=== PATIENT | male | born 1955 | race Caucasian/White ===

== ENCOUNTER 2020-02-03 12:09 | Inpatient (IN) | payer BC, MEDICARE ==
[~2020-02-03 12:09] MED LIST: IV FLUID CONTINUATION 1,000 ML IV ONE
[2020-02-03] MEDS ORDERED: HEPARIN SODIUM,PORCINE 5,000 UNIT/ML 1 ML VIAL IV PRN (12:55)
[2020-02-03] MEDS ORDERED: HEPARIN SODIUM,PORCINE 5,000 UNIT/ML 1 ML VIAL IV ONE (12:55)
[2020-02-03] MEDS ORDERED: ASPIRIN 81 MG PO STA (12:55)
[2020-02-03] MEDS ORDERED: SODIUM CHLORIDE 0.9% 1,000 ML IV STA (12:58)
[2020-02-03] MEDS ORDERED: HEPARIN SOD,PORK IN 0.45% NACL 25,000 UNIT in 0.45% NACL 1 250ML.BAG IV SCH (13:00)
--- NOTE | 2020-02-03 13:01 | ED ---
General Adult HPI - General Chief complaint: Chest Pain Stated complaint: Back and chest pain Time Seen by Provider: 02/03/20 12:35 Source: patient Mode of arrival: wheelchair Limitations: no limitations - History of Present Illness Initial comments: Dictation was produced using [employer] [place] dictation software. please excuse any grammatical, word or spelling errors. This patient was cared for during a federal and state declared state of emergency secondary to Covid 19 Chief Complaint: 64-year-old male with no significant past medical history presents today with chest and back pain. History of Present Illness: Patient is a 64-year-old male he denies any history of medical comorbidities. Patient states that over the last week has been having exertional dyspnea and pressure-like sensation to his chest radiating to his back. Patient states that his pain is associated with diaphoresis and nausea. Patient states that his pain now feels like it's in the epigastric area. He states he came to the emergency department today because his symptoms are getting worse. Patient denies any history of diabetes, hypertension or high cholesterol. Does not have any history of tobacco use. Reports that his father had myocardial infarction in his 60s. The ROS documented in this emergency department record has been reviewed and confirmed by me. Those systems with pertinent positive or negative responses have been documented in the HPI. All other systems are other negative and/or noncontributory. PHYSICAL EXAM: General Impression: Alert and oriented x3, mild distress secondary to pain HEENT: Normocephalic atraumatic, extra-ocular movements intact, pupils equal and reactive to light bilaterally, mucous membranes moist. Cardiovascular: Heart regular rate and rhythm, no murmurs, rubs or gallops Chest: Able to complete full sentences, no retractions, no tachypnea clear to auscultation bilaterally Abdomen: abdomen soft, non-tender, non-distended, no organomegaly Musculoskeletal: Pulses present and equal in all extremities, no peripheral edema Motor: no focal deficits noted Neurological: CN II-XII grossly intact, no focal motor or sensory deficits noted Skin: Intact with no visualized rashes Psych: Normal affect and mood ED course: 64-year-old male presents today with chief complaint of chest pain. His chest pain is concerning for acute coronary syndrome. EKG was obtained showing acute myocardial infarction. Patient has ST elevations in the anteroseptal leads and high lateral leads. There is reciprocal depressions in inferior leads. Vital signs upon arrival shows blood pressure 97/65, rest of vital signs within acceptable limits. Code STEMI was paged. Case was discussed with Dr. Rodarte. [id number] bedside ultrasound was performed. No pericardial effusion. There appears to be some septal wall motion abnormality. Dr. Rodarte at bedside value with patient prior to transfer patient to cardiac supervisor cytogenetic laboratory. Patient case was discussed with Dr. Bravo covering for Dr. Downing. Patient be admitted. He is given aspirin and heparin. EKG interpretation: Ventricular rate 89, sinus rhythm, DC,. Interval 1:30, QRS 92, QTc 462. No [place] prolongation, no QTC prolongation, ST elevations in V1 through V5, elevation in aVL and depressions in inferior leads - Related Data Home Medications Medication Instructions Recorded Confirmed No Known Home Medications 02/03/20 02/03/20 Allergies Allergy/AdvReac Type Severity Reaction Status Date / Time Penicillins Allergy Rash/Hives Verified 02/03/20 12:57 Review of Systems ROS Statement: Those systems with pertinent positive or pertinent negative responses have been documented in the HPI. ROS Other: All systems not noted in ROS Statement are negative. Past Medical History Past Medical History: No Reported History History of Any Multi-Drug Resistant Organisms: None Reported Past Surgical History: Orthopedic Surgery Additional Past Surgical History / Comment(s): colonoscopy, rt shoulder Past Anesthesia/Blood Transfusion Reactions: No Reported Reaction Past Psychological History: No Psychological Hx Reported Smoking Status: Never smoker Past Alcohol Use History: None Reported Past Drug Use History: None Reported - Past Family History Mother Family Medical History: Cancer General Exam Limitations: no limitations Course Vital Signs 02/03/20 02/03/20 12:28 13:09 Temperature 98.3 F Pulse Rate 87 82 Respiratory 20 18 Rate Blood Pressure 97/65 145/97 O2 Sat by Pulse 99 97 Oximetry Medical Decision Making - Lab Data Result diagrams: 02/03/20 12:51 Lab Results 02/03/20 Range/Units 12:51 WBC 11.5 H (3.8-10.6) k/uL RBC 5.11 (4.30-5.90) m/uL Hgb 16.4 (13.0-17.5) gm/dL Hct 47.3 (39.0-53.0) % MCV 92.7 (80.0-100.0) fL MCH 32.1 (25.0-35.0) pg MCHC 34.7 (31.0-37.0) g/dL RDW 12.6 (11.5-15.5) % Plt Count 212 (150-450) k/uL MPV 7.4 Neutrophils % 79 % Lymphocytes % 13 % Monocytes % 5 % Eosinophils % 1 % Basophils % 1 % Neutrophils # 9.1 H (1.3-7.7) k/uL Lymphocytes # 1.5 (1.0-4.8) k/uL Monocytes # 0.6 (0-1.0) k/uL Eosinophils # 0.2 (0-0.7) k/uL Basophils # 0.1 (0-0.2) k/uL Critical Care Time Critical Care Time: Yes Total Critical Care Time: 15 Disposition Clinical Impression: STEMI (ST elevation myocardial infarction) Disposition: ADMITTED IP TO [facility] Condition: Critical Decision Time: 13:13
[2020-02-03] MEDS ORDERED: NALOXONE 0.4 MG/ML 1 ML VIAL IV PRN (13:02)
[2020-02-03 13:08] LABS: Basophils # (A) 0.1 k/uL (0-0.2); Basophils % (A) 1 %; Eosinophils # (A) 0.2 k/uL (0-0.7); Eosinophils % (A) 1 %; HCT 47.3 % (39.0-53.0); HGB 16.4 gm/dL (13.0-17.5); Lymphocytes # (A) 1.5 k/uL (1.0-4.8); Lymphocytes % (A) 13 %; MCH 32.1 pg (25.0-35.0); MCHC 34.7 g/dL (31.0-37.0); MCV 92.7 fL (80.0-100.0); Mean Platelet Volume 7.4; Monocytes # (A) 0.6 k/uL (0-1.0); Monocytes % (A) 5 %; Neutrophils # (A) 9.1 k/uL (1.3-7.7); Neutrophils % (A) 79 %; Platelet Count 212 k/uL (150-450); RBC 5.11 m/uL (4.30-5.90); RDW 12.6 % (11.5-15.5); WBC 11.5 k/uL (3.8-10.6)
--- NOTE | 2020-02-03 13:13 | XR ---
EXAMINATION TYPE: XR chest 1V portable DATE OF EXAM: 02/03/2020 Comparison: None Clinical History: 64-year-old male Chest Pain Findings: The heart is normal size. Aorta within normal limits. Some interstitial opacities in the right lower lung. Otherwise, no consolidation or pleural effusion. Impression: Interstitial infiltrate in the right lower lung. Correlate for early pneumonia.
[2020-02-03] MEDS ORDERED: ATORVASTATIN 80 MG TAB PO STA (13:15)
[2020-02-03 13:16] LABS: Prothrombin Time 10.3 sec (9.0-12.0)
[2020-02-03 13:19] LABS: Albumin 4.5 g/dL (3.5-5.0); Calcium 9.3 mg/dL (8.4-10.2); Magnesium 1.9 mg/dL (1.6-2.3); Potassium 4.4 mmol/L (3.5-5.1); Total Bilirubin 0.6 mg/dL (0.2-1.3); Total Protein 7.5 g/dL (6.3-8.2)
--- NOTE | 2020-02-03 13:33 | P.CRDCN ---
History of Present Illness History of present illness: HISTORY OF PRESENTING ILLNESS This is a pleasant 64-year-old male past medical history significant for family history of CAD. Patient admits he has not followed with a doctor in quite some time and denies any history of diabetes mellitus, hypertension, hyperlipidemia. He does admit that his father of a heart attack in his 60s. He denies any tobacco abuse, alcohol or illicit drugs. He states over the last 1 week he has been having a pressure sensation which starts in his back and radiates to his right chest and mainly this has been associated with exertion. Chest pain however started this afternoon and did not resolve and therefore presented to the emergency department. Patient was found to have STEMI anterolateral and therefore supervisor dental laboratory was activated. He denies any recent fevers, chills, cough. He denies any hematochezia or melena. DIAGNOSTICS EKG reveals sinus rhythm, ST elevation V1 through V5, aVL with reciprocal depressions inferiorly. Chest xray interstitial infiltrate in the right lower lung correlate for early pneumonia. Laboratory reviewed, white blood cell count 11.5, hemoglobin 16.4, platelets 212, creatinine 1.0, sodium 139, glucose 156. Current cardiac medications include aspirin 324 mg and heparin 4000 units. REVIEW OF SYSTEMS At the time of my exam: CONSTITUTIONAL: Denies fever or chills. CARDIOVASCULAR: +chest pain, and back pain, no shortness of breath, orthopnea, PND or palpitations. RESPIRATORY: Denies cough. GASTROINTESTINAL: Denies abdominal pain, diarrhea, constipation, nausea or vomiting. MUSCULOSKELETAL: Denies myalgias. NEUROLOGIC: Denies numbness, tingling or weakness. ENDOCRINE: Denies fatigue, weight change, polydipsia or polyurina. GENITOURINARY: Denies burning, hematuria or urgency with micturation. HEMATOLOGIC: Denies history of anemia or bleeding. PHYSICAL EXAMINATION Blood pressure 145/97 heart rate 82 afebrile and maintaining oxygen saturation on room air. CONSTITUTIONAL: Mild distress. HEENT: Head is normocephalic. Pupils are equal, round. Sclerae anicteric. Mucous membranes of the mouth are moist. No JVD. No carotid bruit. CHEST EXAMINATION: Lungs are clear to auscultation. No chest wall tenderness is noted on palpation or with deep breathing. HEART EXAMINATION: Regular rate and rhythm. S1, S2 heard. No murmurs, gallops or rub. ABDOMEN: Soft, nontender. Positive bowel sounds. EXTREMITIES: 2+ peripheral pulses, no lower extremity edema and no calf tenderness. NEUROLOGIC EXAMINATION: Patient is awake, alert and oriented x3. ASSESSMENT 1. Anterolateral STEMI with stuttering symptoms over the past week 2. Family history of coronary artery disease 3. Abnormal chest x-ray with questionable right lower lung infiltrate 4. Hyperglycemia 5. Poor follow-up with routine medical screening PLAN Cardiac catheterization lab activated. Transfer for emergent heart catheterization and PCI. Check 2-D echo. Further recommendations to follow. Past Medical History Past Medical History: No Reported History History of Any Multi-Drug Resistant Organisms: None Reported Past Surgical History: Orthopedic Surgery Additional Past Surgical History / Comment(s): colonoscopy, rt shoulder Past Anesthesia/Blood Transfusion Reactions: No Reported Reaction Past Psychological History: No Psychological Hx Reported Smoking Status: Never smoker Past Alcohol Use History: None Reported Past Drug Use History: None Reported - Past Family History Mother Family Medical History: Cancer Medications and Allergies Home Medications Medication Instructions Recorded Confirmed Type No Known Home Medications 02/03/20 02/03/20 History Allergies Allergy/AdvReac Type Severity Reaction Status Date / Time Penicillins Allergy Rash/Hives Verified 02/03/20 12:57 Physical Exam Vitals: Vital Signs Temp Pulse Resp BP Pulse Ox 02/03/20 13:09 82 18 145/97 97 02/03/20 12:28 98.3 F 87 20 97/65 99 Intake and Output 02/02/20 02/03/20 02/03/20 22:59 06:59 14:59 Other: Weight 74.843 kg Results 02/03/20 12:51 02/03/20 12:51 Cardiac Enzymes 02/03/20 Range/Units 12:51 AST 49 (17-59) U/L Coagulation 02/03/20 Range/Units 12:51 PT 10.3 (9.0-12.0) sec APTT 24.0 (22.0-30.0) sec CBC 02/03/20 Range/Units 12:51 WBC 11.5 H (3.8-10.6) k/uL RBC 5.11 (4.30-5.90) m/uL Hgb 16.4 (13.0-17.5) gm/dL Hct 47.3 (39.0-53.0) % Plt Count 212 (150-450) k/uL Comprehensive Metabolic Panel 02/03/20 Range/Units 12:51 Sodium 139 (137-145) mmol/L Potassium 4.4 (3.5-5.1) mmol/L Chloride 101 (98-107) mmol/L Carbon Dioxide 30 (22-30) mmol/L BUN 23 H (9-20) mg/dL Creatinine 1.02 (0.66-1.25) mg/dL Glucose 156 H (74-99) mg/dL Calcium 9.3 (8.4-10.2) mg/dL AST 49 (17-59) U/L ALT 41 (4-49) U/L Alkaline Phosphatase 92 (38-126) U/L Total Protein 7.5 (6.3-8.2) g/dL Albumin 4.5 (3.5-5.0) g/dL Current Medications Generic Name Dose Route Start Last Admin Trade Name Freq PRN Reason Stop Dose Admin Heparin Sodium (Porcine) 0 unit 02/03/20 12:55 Heparin Sodium,Porcine 5,000 Unit/Ml 1 Ml Vial IV PER PROTOCOL PRN Low PTT Protocol Heparin Sodium/Sodium Chloride 250 mls @ 8.981 mls/hr 02/03/20 13:00 25,000 unit/ Sodium Chloride IV .Q24H ELIZABETH Protocol 12 UNITS/KG/HR Sodium Chloride 1,000 mls @ 999 mls/hr 02/03/20 12:58 02/03/20 13:05 Saline 0.9% IV 02/03/20 13:58 999 mls/hr .Q1H1M STA Administration Naloxone HCl 0.2 mg 02/03/20 13:02 Naloxone 0.4 Mg/Ml 1 Ml Vial IV Q2M PRN Opioid Reversal Intake and Output 02/02/20 02/03/20 02/03/20 22:59 06:59 14:59 Other: Weight 74.843 kg Patient Weight 02/04/20 06:59 Weight 74.843 kg 02/03/20 12:51 02/03/20 12:51
[2020-02-03] MEDS ORDERED: MIDAZOLAM 2 MG/2 ML VIAL IVP ONE (13:35)
[2020-02-03] MEDS: fentaNYL (PF) 50 MCG/ML 2 ML AMP IVP ONE ×2 (13:35→14:23)
[2020-02-03] MEDS ORDERED: LIDOCAINE 1% INJ 10MG/ML (20 ML MDV) SQ ONE (13:37)
[2020-02-03] MEDS ORDERED: VERAPAMIL SYRINGE (5 MG/10 ML) INTRAARTER ONE (13:39)
[2020-02-03] MEDS: HEPARIN SODIUM 1,000 UN/ML (10ML VL) IV ONE ×2 (13:44→13:59)
[2020-02-03] MEDS ORDERED: PRASUGREL 10 MG TAB PO ONE (13:50)
[2020-02-03] MEDS: NITROGLYCERIN 1000MCG/10ML SYRINGE INTRACORON ONE ×2 (13:52→14:08)
[2020-02-03] MEDS ORDERED: IOPAMIDOL-370 125ML BTL INJ ONE (14:07)
[2020-02-03] MEDS ORDERED: IOPAMIDOL-370 100ML BTL INJ ONE ×2 (14:12→14:24)
[2020-02-03] MEDS ORDERED: NITROGLYCERIN SL TABS 0.4 MG TAB SUBLINGUAL PRN (15:02)
[2020-02-03] MEDS ORDERED: MAG HYDROX/AL HYDROX/SIMETH 30 ML CUP PO PRN (15:02)
[2020-02-03] MEDS ORDERED: ATROPINE SULFATE 0.1 MG/ML 10ML SYRINGE IV PRN (15:02)
[2020-02-03] MEDS ORDERED: RX INFO: IV CONTRAST WAS GIVEN 1 EACH MISC MISCELLANE PRN (15:02)
[2020-02-03] MEDS ORDERED: ZOLPIDEM 5 MG TAB PO PRN (15:02)
[2020-02-03] MEDS: SODIUM CHLORIDE 0.9% 1,000 ML IV SCH (15:35)
[2020-02-03] MEDS: HYDROmorphone 0.5 MG/0.5 ML SYRINGE IVP PRN ×2 (16:47→21:40)
[2020-02-03] MEDS: METOPROLOL TARTRATE 25 MG TAB PO SCH (20:31)
[2020-02-04 04:02] LABS: HGB 15.4 gm/dL (13.0-17.5); MCH 32.5 pg (25.0-35.0); MCHC 34.3 g/dL (31.0-37.0); MCV 94.6 fL (80.0-100.0); Mean Platelet Volume 7.1; Platelet Count 199 k/uL (150-450); RBC 4.76 m/uL (4.30-5.90); WBC 12.3 k/uL (3.8-10.6)
[2020-02-04 04:10] LABS: ALT 106 U/L (4-49); AST 468 U/L (17-59); African American GFR (CKD) >90 (>60 ml/min/1.73 sqM); Albumin 3.9 g/dL (3.5-5.0); Alkaline Phosphatase 59 U/L (38-126); Anion Gap 6 mmol/L; Blood Urea Nitrogen 23 mg/dL (9-20); Calcium 8.4 mg/dL (8.4-10.2); Carbon Dioxide 24 mmol/L (22-30); Chloride 105 mmol/L (98-107); Non-African American GFR(CKD) >90 (>60 ml/min/1.73 sqM); Potassium 4.9 mmol/L (3.5-5.1); Sodium 135 mmol/L (137-145); Total Protein 6.8 g/dL (6.3-8.2)
[2020-02-04 04:18] LABS: Glucose 165 mg/dL (74-99)
[2020-02-04] MEDS: SODIUM CHLORIDE 0.9% 1,000 ML IV SCH (06:47)
[2020-02-04] MEDS: METOPROLOL TARTRATE 25 MG TAB PO SCH ×2 (09:09→20:24)
[2020-02-04] MEDS: ASPIRIN 81 MG PO SCH (09:09)
[2020-02-04] MEDS: PRASUGREL 10 MG TAB PO SCH (09:09)
--- NOTE | 2020-02-04 10:03 | PN ---
PROGRESS NOTE Josh is a 64-year-old gentleman who is admitted to the hospital with acute anterior wall myocardial infarction. Underwent emergent cardiac catheterization, angioplasty with stent placement by my associate, Dr. Rodarte. This morning patient is doing well and is free of symptoms. He is on aspirin, Lopressor 25 b.i.d. and Effient. The patient was on atorvastatin, but this has been stopped. For unclear reasons his liver enzymes have suddenly increased from admission which could be related to the myocardial infarction. We will watch it for another day and once the liver enzymes start normalizing, will start him on Lipitor. PHYSICAL EXAM: Afebrile, heart rate is 89 beats per minute, blood pressure is 122/92, respiratory rate 18. Chest exam reveals good air entry bilaterally. Heart exam reveals first and second heart sounds. No gallop. Abdomen is soft. Exam of extremities did not reveal any edema. Peripheral pulses are felt. LABS: Show that the hemoglobin is 15.4, potassium is 4.9, creatinine is 0.8. BNP is 980. Troponin is 1.1. AST, ALT are elevated at 468 and 106. ASSESSMENT: Acute anterior wall myocardial infarction. PLAN: Patient had cardiac catheterization and emergent angioplasty. He will continue current medications. I will obtain liver enzymes tomorrow and if they start coming down, we will start him on Lipitor. We will also obtain a 2D echo. NEETA / JINAN: [id number] /
[2020-02-04 12:31] VITALS: BMI 24.4
--- NOTE | 2020-02-04 15:24 | P.HPIM ---
History of Present Illness H&P Date: 02/04/20 Chief Complaint: Chest pain This is a pleasant 64-year-old male without any significant past medical history, patient has been having intermittent chest pain and back pain for the last 10 days however one day prior to coming to the hospital severity of pain increases patient has significant cardiovascular disease in the family, patient brother underwent a stent placement couple of weeks ago, on arrival patient noted to have a ST segment elevation more than 2 mm in anterior chest leads suggestive of acute ST segment elevated MA, patient was eval by cardiovascular services underwent an emergent cardiac cath and angiogram and stent placement in mid LAD portion, her labs were significant for troponin level of 1.16, initially subsequent were 107, patient's initial liver enzymes were normal however today almost 10 times elevation is seen in AST and 3 times and ALT Review of Systems All systems: negative Past Medical History Past Medical History: No Reported History History of Any Multi-Drug Resistant Organisms: None Reported Past Surgical History: Orthopedic Surgery Additional Past Surgical History / Comment(s): colonoscopy, rt shoulder Past Anesthesia/Blood Transfusion Reactions: No Reported Reaction Smoking Status: Never smoker - Past Family History Mother Family Medical History: Cancer Medications and Allergies Home Medications Medication Instructions Recorded Confirmed Type No Known Home Medications 02/03/20 02/03/20 History Allergies Allergy/AdvReac Type Severity Reaction Status Date / Time Penicillins Allergy Rash/Hives Verified 02/03/20 12:57 Physical Exam Vitals: Vital Signs Temp Pulse Resp BP Pulse Ox 02/04/20 12:00 98.9 F 76 18 107/77 96 02/04/20 11:00 72 15 95 02/04/20 10:00 76 17 117/79 96 02/04/20 08:00 98.2 F 89 19 122/90 94 L 02/04/20 07:00 90 18 122/81 93 L 02/04/20 06:00 85 17 122/80 95 02/04/20 05:00 77 19 128/88 94 L 02/04/20 04:00 99.1 F 22 109/82 93 L 02/04/20 03:59 16 02/04/20 03:00 79 16 112/81 95 02/04/20 02:00 67 18 110/82 95 02/04/20 01:00 67 19 105/81 94 L 02/04/20 00:00 98.6 F 66 17 114/85 94 L 02/03/20 23:00 84 22 120/85 95 02/03/20 22:00 92 20 124/85 94 L 02/03/20 21:00 80 20 131/85 95 02/03/20 20:00 98.9 F 84 18 126/89 97 02/03/20 19:30 83 18 126/91 96 02/03/20 19:00 82 15 134/90 97 02/03/20 18:30 78 17 128/88 97 02/03/20 18:00 83 14 130/88 97 02/03/20 17:30 85 15 126/79 97 02/03/20 17:00 82 18 128/80 96 02/03/20 16:30 79 18 135/87 98 02/03/20 16:00 80 14 142/92 97 02/03/20 15:30 85 15 135/89 97 Intake and Output 02/04/20 02/04/20 02/04/20 06:59 14:59 22:59 Intake Total 900 625 Output Total 200 Balance 700 625 Intake: IV 600 75 Sodium Chloride 0.9% 1, 600 75 000 ml @ 75 mls/hr IV . [id number] COUNT INCLUDES THE [facility] Rx#:[id number] Oral 300 550 Output: Urine 200 Other: Voiding Method Urinal Urinal # Voids 1 Weight 77.2 kg 77.2 kg - Constitutional General appearance: average body habitus, cooperative, disheveled - EENT Eyes: PERRLA Ears: bilateral: normal - Neck Carotids: right: upstroke delayed Thyroid: bilateral: normal size - Respiratory Respiratory: bilateral: CTA - Cardiovascular Rhythm: regular Heart sounds: normal: S1, S2 - Gastrointestinal General gastrointestinal: decreased bowel sounds - Integumentary Integumentary: normal turgor - Neurologic Neurologic: CNII-XII intact - Musculoskeletal Musculoskeletal: gait normal, generalized weakness, strength equal bilaterally - Psychiatric Psychiatric: A&O x's 3, appropriate affect, intact judgment & insight Results CBC & Chem 7: 02/04/20 03:51 02/04/20 03:51 Labs: Abnormal Lab Results - Last 24 Hours (Table) 02/04/20 02/04/20 02/04/20 Range/Units 03:51 03:51 03:51 WBC 12.3 H (3.8-10.6) k/uL Sodium 135 L (137-145) mmol/L BUN 23 H (9-20) mg/dL Glucose 165 H (74-99) mg/dL AST 468 H (17-59) U/L ALT 106 H (4-49) U/L Troponin I 107.000 H* (0.000-0.034) ng/mL Chest x-ray: report reviewed (Interstitial infiltrate in right lower lobe possible early pneumonia) Thrombosis Risk Factor Assmnt - Choose All That Apply Any of the Below Risk Factors Present?: Yes Each Factor Represents 1 point: Acute MA Each Risk Factor Represents 2 Points: Age 61-74 years Other congenital or acquired thrombophilia - If yes, enter type in comment: No Thrombosis Risk Factor Assessment Total Risk Factor Score: 3 Thrombosis Risk Factor Assessment Level: Moderate Risk Assessment and Plan Assessment: Acute ST segment elevated MA in anterior leads suggestive of acute anterior wall MA Coronary artery disease with obstruction of LAD status post emergent cardiac cath and stent placement Right lower lobe pneumonia Leukocytosis Elevated liver enzymes post MA Plan: Patient has been monitored in ICU, trend liver enzymes, echocardiogram pending, patient has been started on antilipid agents, will put patient on Rocephin as well, observe clinical course closely Time with Patient: Greater than 30
[2020-02-04] MEDS ORDERED: HYDROcodone/APAP 5-325MG 1 EACH TAB PO PRN (15:46)
[2020-02-04] MEDS: DOXYCYCLINE 100 MG CAP PO SCH (16:38)
--- NOTE | 2020-02-04 19:59 | P.PRCINT ---
Percutaneous Coronary Int. - Percutaneous Coronary Intervention Percutaneous Coronary Intervention: Date of PCI: 02/03/2020 Procedures performed: Left and right coronary angiography, PCI of mid LAD with 3.0 x 15 mm Xience LAMIN. Procedure performed by: Dr Med Rodarte DO Indications: STEMI HPI: Patient is a pleasant 64-year-old male who presented with back and chest pain and was found to have anterolateral STEMI. Apparently there was delay in patient obtaining EKG in ER, unclear if this was related to COVID however EKG showed anterolateral STEMI and slab off mill tender was activated. Conscious sedation: Conscious sedation was performed under the direct supervion of myself using Versed and Fentanyl. Description of procedure: The risks, benefits and alternatives of heart catheterization and PCI were explained in detail to the patient before the procedure and informed consent was obtained. The patient was brought to the Transportation Services Representative and was prepped and draped in the usual fashion. 1% lidocaine was used to anesthetize the right radial area. A 6 [place]ogol[place] sheath was inserted into the right radial artery using modified Seldinger technique. Left coronary angiography was performed with a CLS 3.5 guide. Right coronary angiography was performed with a 5 [place]ese after 5 diagnostic catheter. A decision was made to intervene on the LAD. Heparin was given for an ACT greater than 250. With the CLS 3.5 guide, a 0.014 BMW wire was placed in the distal vessel. Next predilation was performed using a 2.5 x 12 mm balloon. There was extensive thrombus noted. A 3.0 x 15 mm Xience LAMIN stent was then placed. The stent was post dilated with a 3.5 x 8mm NC balloon. Angiograms were obtained in multiple views. Pre intervention there was 99 % stenosis and VIRA 1 flow and post intervention there was <10% residual stenosis and VIRA 3 flow and no evidence of any dissection. The wire was then removed and final angiograms were obtained. A TR band was placed and the sheath was removed. The patient tolerated the procedure well. The patient was transferred to the post catheterization holding area in stable condition. Coronary angiography: Left Main: Large caliber, no signficant stenosis Circumflex: large caliber, codominant, gives off 3 moderate to large caliber OM branches with only mild luminal irregularities. LAD: Large caliber. There is diffuse proximal 30-40% stenosis followed by a mid LAD 99% stenosis with hazy thrombus and VIRA 1 flow. Otherwise mild luminal irregularities. RCA: Small to moderate caliber however only gives off a PDA and is codominant. Conclusions: 1. Successful PCI of mid LAD with 3.0 x 15 mm Xience LAMIN 2. Mild disease elsewhere including mild 30-40% proximal LAD disease and otherwise mild luminal irregularities. Plan: 1. Aggressive risk factor modifications per most recent ACC/AHA guidelines. 2. Continue dual antiplatelets for 12 months.
[2020-02-05 04:23] LABS: Basophils % (A) 0 %; Eosinophils # (A) 0.1 k/uL (0-0.7); Eosinophils % (A) 1 %; HCT 41.7 % (39.0-53.0); HGB 14.3 gm/dL (13.0-17.5); Lymphocytes # (A) 1.8 k/uL (1.0-4.8); Lymphocytes % (A) 18 %; MCH 31.9 pg (25.0-35.0); MCHC 34.3 g/dL (31.0-37.0); MCV 92.9 fL (80.0-100.0); Mean Platelet Volume 7.5; Monocytes # (A) 0.7 k/uL (0-1.0); Monocytes % (A) 7 %; Neutrophils # (A) 7.4 k/uL (1.3-7.7); Neutrophils % (A) 73 %; Platelet Count 161 k/uL (150-450); RBC 4.48 m/uL (4.30-5.90); RDW 12.8 % (11.5-15.5); WBC 10.2 k/uL (3.8-10.6)
[2020-02-05 04:31] LABS: ALT 84 U/L (4-49); AST 215 U/L (17-59); African American GFR (CKD) >90 (>60 ml/min/1.73 sqM); Albumin 3.9 g/dL (3.5-5.0); Alkaline Phosphatase 69 U/L (38-126); Anion Gap 4 mmol/L; Blood Urea Nitrogen 22 mg/dL (9-20); Calcium 8.9 mg/dL (8.4-10.2); Carbon Dioxide 31 mmol/L (22-30); Chloride 100 mmol/L (98-107); Glucose 105 mg/dL (74-99); Non-African American GFR(CKD) 80 (>60 ml/min/1.73 sqM); Potassium 4.3 mmol/L (3.5-5.1); Sodium 135 mmol/L (137-145); Total Protein 6.6 g/dL (6.3-8.2)
[2020-02-05] MEDS ORDERED: HEPARIN SODIUM,PORCINE 5,000 UNIT/ML 1 ML VIAL IV ONE (04:46)
[2020-02-05 05:01] LABS: Partial Thromboplastin Time 24.7 sec (22.0-30.0); Prothrombin Time 10.2 sec (9.0-12.0)
[2020-02-05] MEDS: HEPARIN SOD,PORK IN 0.45% NACL 25,000 UNIT in 0.45% NACL 1 250ML.BAG IV SCH ×2 (05:22→22:32)
[2020-02-05] MEDS ORDERED: AMIODARONE 360 MG in DEXTROSE 5% IN WATER 200 ML IV ONE ×2 (07:44)
[2020-02-05] MEDS ORDERED: DEXTROSE 5% IN WATER 100 ML with AMIODARONE 150 MG IV ONE (07:44)
[2020-02-05] MEDS: ASPIRIN 81 MG PO SCH (08:29)
[2020-02-05] MEDS: PRASUGREL 10 MG TAB PO SCH (08:29)
[2020-02-05] MEDS: DOXYCYCLINE 100 MG CAP PO SCH ×2 (08:29→20:13)
[2020-02-05] MEDS: METOPROLOL TARTRATE 25 MG TAB PO SCH ×2 (08:30→20:13)
--- NOTE | 2020-02-05 13:01 | ECHOF ---
Referral Reason:S/P AWMI MEASUREMENTS -------- HEIGHT: 177.8 cm WEIGHT: 75.7 kg BP: 106/70 IVSd: 1.6 cm (0.6 - 1.1) LVIDd: 3.6 cm (3.9 - 5.3) LVPWd: 1.5 cm (0.6 - 1.1) IVSs: 2.0 cm LVIDs: 2.5 cm LVPWs: 1.7 cm RVIDd: 2.9 cm (< 3.3) LAESV Index (A-L): 24.91 ml/m Ao Diam: 3.0 cm (2.0 - 3.7) AV Cusp: 1.9 cm (1.5 - 2.6) EPSS: 0.3 cm MV E Celestine: 0.82 m/s MV DecT: 125 ms MV A Celestine: 0.73 m/s MV E/A Ratio: 1.13 RAP: 5.00 mmHg RVSP: 45.37 mmHg MV EF SLOPE: 117.83 mm/s (70 - 150) MV EXCURSION: 20.18 mm (> 18.000) FINDINGS -------- Sinus rhythm. This was a technically adequate study. The left ventricular size is normal. There is moderate concentric left ventricular hypertrophy. O verall left ventricular systolic function is mildly impaired with, an EF between 45 - 50 %. Mitral Doppler inflow pattern suggests diastolic filling abnormality {E/E'}. Apical anterior LV wall motio n is hypokinetic. Apical inferior LV wall motion is hypokinetic. Apical septum LV wall motion i s hypokinetic. [place] Hypokinesis. The right ventricle is normal in size. Normal LA size by volume 22+/-6 ml/m2. The right atrial size is normal. Interatrial and interventricular septum intact. The aortic valve is trileaflet and appears structurally normal. There is no evidence of aortic regu rgitation. There is no evidence of aortic stenosis. Mild mitral regurgitation is present. Moderate tricuspid regurgitation present. There is moderate pulmonary hypertension. The right meme tricular systolic pressure, as measured by Doppler, is 45.37mmHg. There is no pulmonic regurgitation present. The aortic root size is normal. IVC Not well visulized. There is no pericardial effusion. CONCLUSIONS -------- 1. The left ventricular size is normal. 2. There is moderate concentric left ventricular hypertrophy. 3. Overall left ventricular systolic function is mildly impaired with, an EF between 45 - 50 %. 4. Mitral Doppler inflow pattern suggest diastolic filling abnormality {E/E'}. 5. Apical anterior LV wall motion is hypokinetic. 6. Apical inferior LV wall motion is hypokinetic. 7. Apical septum LV wall motion is hypokinetic. 8. [place] Hypokinesis. 9. Mild mitral regurgitation is present. 10. Moderate tricuspid regurgitation present. 11. There is moderate pulmonary hypertension. 12. The right ventricular systolic pressure, as measured by Doppler, is 45.37mmHg. MERCURY RECOVERER: Mary Ferrari RDCS
[2020-02-05] MEDS: AMIODARONE 300 MG in DEXTROSE 5% IN WATER 250 ML IV SCH ×4 (13:40→22:33)
--- NOTE | 2020-02-05 14:13 | P.PN ---
Subjective Progress Note Date: 02/05/20 Principal diagnosis: Acute coronary syndrome This is a 64-year-old gentleman who presented to the hospital with a chest discomfort and was diagnosed as anterior STEMI. He underwent a heart catheterization and stenting of the LAD. The patient was seen this morning. He is is symptomatic. Hemodynamically he is stable. The echo showed impaired LV function with EF around 45% with wall motion abnormalities. He is on dual antiplatelet therapy but he is not on a statin. I'm going to start the patient on high intensity statin. Also he is on metoprolol. No arrhythmia noted. Objective - Vital Signs Vital signs: Vital Signs Temp 97.9 F 02/05/20 12:00 Pulse 77 02/05/20 12:00 Resp 18 02/05/20 12:00 BP 98/80 02/05/20 12:00 Pulse Ox 96 02/05/20 12:00 Intake & Output 02/04/20 02/05/20 02/05/20 18:59 06:59 18:59 Intake Total 925 275 848.428 Output Total 1050 Balance 925 275 -201.572 Weight 77.2 kg 76.1 kg Intake: IV 75 75 Sodium Chloride 0.9% 1, 75 75 000 ml @ 75 mls/hr IV . [id number] [facility] Rx#:[id number] Intake, IV Titration 368.428 Amount Amiodarone 360 mg In 132 Dextrose 5% in Water 200 ml @ 1 MG/MIN 33.333 mls/ hr IV .Q6H [facility] Rx#: [id number] Dextrose 5% in Water 100 150 ml @ 618 mls/hr IV .Q10M [facility] with Amiodarone 150 mg Rx#:[id number] Heparin Sod,Pork in 0.45% 76.428 NaCl 25,000 unit In 0.45 % NaCl 1 250ml.bag @ 12 UNITS/KG/HR 9.264 mls/hr IV .Q24H [facility] Rx#: [id number] IV Fluid Continuation 1, 10 000 ml @ 0 mls/hr IV .STK -MED ONE Rx#:[id number] Oral 850 200 480 Output: Urine 1050 Other: Voiding Method Urinal Urinal # Voids 2 1 1 - Constitutional General appearance: Present: no acute distress - Respiratory Respiratory: bilateral: CTA - Cardiovascular Rhythm: regular - Labs CBC & Chem 7: 02/05/20 03:06 02/05/20 03:06 Labs: Abnormal Lab Results - Last 24 Hours (Table) 02/05/20 02/05/20 Range/Units 03:06 11:25 APTT 33.9 H (22.0-30.0) sec Sodium 135 L (137-145) mmol/L Carbon Dioxide 31 H (22-30) mmol/L BUN 22 H (9-20) mg/dL Glucose 105 H (74-99) mg/dL AST 215 H (17-59) U/L ALT 84 H (4-49) U/L Assessment and Plan Assessment: Assessment #[address] patient in my #2 hypertension #3 dyslipidemia Plan #1 continue the current medical regimen #2 monitor the patient in the ICU for additional 24 hours #3 add high intensity statin
--- NOTE | 2020-02-05 18:06 | P.PN ---
Subjective Progress Note Date: 02/05/20 Principal diagnosis: Atrial fibrillation with RVR Acute ST segment elevated [place] in anterior leads suggestive of acute anterior wall KS Coronary artery disease with obstruction of LAD status post emergent cardiac cath and stent placement Right lower lobe pneumonia Leukocytosis Elevated liver enzymes post [place] 02/05/2020, patient seen eval examined during the rounds labs reviewed medications reviewed, respiratory status remains stable patient had a episode of A. fib with RVR earlier this morning controlled with medication, now currently patient is on sinus rhythm, denies any chest pain breathing comfortably denies any cough or sputum production, LFT continued to be declining now This is a pleasant 64-year-old male without any significant past medical history, patient has been having intermittent chest pain and back pain for the last 10 days however one day prior to coming to the hospital severity of pain increases patient has significant cardiovascular disease in the family, patient brother underwent a stent placement couple of weeks ago, on arrival patient note d to have a ST segment elevation more than 2 mm in anterior chest leads suggestive of acute ST segment elevated [place], patient was eval by cardiovascular services underwent an emergent cardiac cath and angiogram and stent placement in mid LAD portion, her labs were significant for troponin level of 1.16, initially subsequent were 107, patient's initial liver enzymes were normal however today almost 10 times elevation is seen in AST and 3 times and ALT Objective - Vital Signs Vital signs: Vital Signs Temp 98.6 F 02/05/20 16:00 Pulse 87 02/05/20 16:00 Resp 16 02/05/20 16:00 BP 114/65 02/05/20 16:00 Pulse Ox 96 02/05/20 16:00 Intake & Output 02/04/20 02/05/20 02/05/20 18:59 06:59 18:59 Intake Total 428 398 1692.428 Output Total 1650 Balance 925 275 -565.572 Weight 77.2 kg 76.1 kg Intake: IV 75 75 Sodium Chloride 0.9% 1, 75 75 000 ml @ 75 mls/hr IV . [id number] [facility] Rx#:[id number] Intake, IV Titration 484.428 Amount Amiodarone 300 mg In 50 Dextrose 5% in Water 250 ml @ 0.5 MG/MIN 25 mls/hr IV .Q10H [facility] Rx#: [id number] Amiodarone 360 mg In 198 Dextrose 5% in Water 200 ml @ 1 MG/MIN 33.333 mls/ hr IV .Q6H [facility] Rx#: [id number] Dextrose 5% in Water 100 150 ml @ 618 mls/hr IV .Q10M [facility] with Amiodarone 150 mg Rx#:[id number] Heparin Sod,Pork in 0.45% 76.428 NaCl 25,000 unit In 0.45 % NaCl 1 250ml.bag @ 12 UNITS/KG/HR 9.264 mls/hr IV .Q24H [facility] Rx#: [id number] IV Fluid Continuation 1, 10 000 ml @ 0 mls/hr IV .STK -MED ONE Rx#:[id number] Oral 850 200 600 Output: Urine 1650 Other: Voiding Method Urinal Urinal # Voids 2 1 1 - Exam - Constitutional General appearance: average body habitus, cooperative, disheveled - EENT Eyes: PERRLA Ears: bilateral: normal - Neck Carotids: right: upstroke delayed Thyroid: bilateral: normal size - Respiratory Respiratory: bilateral: CTA - Cardiovascular Rhythm: regular Heart sounds: normal: S1, S2 - Gastrointestinal General gastrointestinal: decreased bowel sounds - Integumentary Integumentary: normal turgor - Neurologic Neurologic: CNII-XII intact - Musculoskeletal Musculoskeletal: gait normal, generalized weakness, strength equal bilaterally - Psychiatric Psychiatric: A&O x's 3, appropriate affect, intact judgment & insight - Labs CBC & Chem 7: 02/05/20 03:06 02/05/20 03:06 Labs: Abnormal Lab Results - Last 24 Hours (Table) 02/05/20 02/05/20 Range/Units 03:06 11:25 APTT 33.9 H (22.0-30.0) sec Sodium 135 L (137-145) mmol/L Carbon Dioxide 31 H (22-30) mmol/L BUN 22 H (9-20) mg/dL Glucose 105 H (74-99) mg/dL AST 215 H (17-59) U/L ALT 84 H (4-49) U/L Assessment and Plan Assessment: Post KS atrial fibrillation with RVR resolved now in sinus rhythm Acute ST segment elevated KS in anterior leads suggestive of acute anterior wall KS Coronary artery disease with obstruction of LAD status post emergent cardiac cath and stent placement Right lower lobe pneumonia Leukocytosis Elevated liver enzymes post KS Plan: Patient has been monitored in ICU, trend liver enzymes, echocardiogram reviewed, patient has been started on antilipid agents, will keep patient on doxycycline as well, observe clinical course closely, patient has been on amiodarone for A. fib RVR along with antibiotics Time with Patient: Greater than 30
[2020-02-05] MEDS ORDERED: ATORVASTATIN 80 MG TAB PO SCH (21:00)
[2020-02-06 03:31] LABS: Basophils % (A) 0 %; Eosinophils # (A) 0.1 k/uL (0-0.7); Eosinophils % (A) 1 %; HGB 14.1 gm/dL (13.0-17.5); Lymphocytes # (A) 1.5 k/uL (1.0-4.8); Lymphocytes % (A) 13 %; MCH 32.4 pg (25.0-35.0); MCHC 34.3 g/dL (31.0-37.0); MCV 94.6 fL (80.0-100.0); Monocytes # (A) 0.9 k/uL (0-1.0); Monocytes % (A) 8 %; Neutrophils # (A) 8.2 k/uL (1.3-7.7); Neutrophils % (A) 75 %; Platelet Count 134 k/uL (150-450); RBC 4.34 m/uL (4.30-5.90); RDW 12.8 % (11.5-15.5)
[2020-02-06 03:56] VITALS: RESP 18
[2020-02-06] MEDS: METOPROLOL TARTRATE 25 MG TAB PO SCH (09:00)
[2020-02-06] MEDS: DOXYCYCLINE 100 MG CAP PO SCH (09:00)
[2020-02-06] MEDS: ASPIRIN 81 MG PO SCH (09:00)
[2020-02-06] MEDS: PRASUGREL 10 MG TAB PO SCH (09:00)
--- NOTE | 2020-02-06 09:26 | P.PN ---
Subjective Progress Note Date: 02/06/20 Principal diagnosis: Acute coronary syndrome This is a 64-year-old gentleman who presented to the hospital with a chest discomfort and was diagnosed as anterior STEMI. He underwent a heart catheterization and stenting of the LAD. The patient was seen this morning. He remains asymptomatic from a cardiovascular standpoint of view. The echo revealed mildly impaired LV functio n was EF around 45%. He is on dual antiplatelet therapy along with a statin as well as beta veronica with metoprolol. From a cardiovascular standpoint of view, the patient can be discharged home Objective - Vital Signs Vital signs: Vital Signs Temp 97.9 F 02/06/20 03:55 Pulse 89 02/06/20 03:55 Resp 18 02/06/20 03:55 BP 120/83 02/06/20 03:55 Pulse Ox 97 02/06/20 03:55 Intake & Output 02/05/20 02/06/20 02/06/20 18:59 06:59 18:59 Intake Total 1084.428 647.790 125 Output Total 2050 100 Balance -965.572 547.790 125 Weight 75.8 kg Intake: IV 10 KVO 10 Intake, IV Titration 484.428 397.790 Amount Amiodarone 300 mg In 50 222.083 Dextrose 5% in Water 250 ml @ 0.5 MG/MIN 25 mls/hr IV .Q10H [facility] Rx#: [id number] Amiodarone 360 mg In 198 Dextrose 5% in Water 200 ml @ 1 MG/MIN 33.333 mls/ hr IV .Q6H [facility] Rx#: [id number] Dextrose 5% in Water 100 150 ml @ 618 mls/hr IV .Q10M [facility] with Amiodarone 150 mg Rx#:[id number] Heparin Sod,Pork in 0.45% 76.428 175.707 NaCl 25,000 unit In 0.45 % NaCl 1 250ml.bag @ 12 UNITS/KG/HR 9.264 mls/hr IV .Q24H [facility] Rx#: [id number] IV Fluid Continuation 1, 10 000 ml @ 0 mls/hr IV .STK -MED [facility] Rx#:[id number] Oral 600 240 125 Output: Urine 2050 100 Other: Voiding Method Urinal # Voids 1 1 - Constitutional General appearance: Present: no acute distress - Respiratory Respiratory: bilateral: CTA - Cardiovascular Rhythm: regular Heart sounds: normal: S1, S2 - Labs CBC & Chem 7: 02/06/20 02:30 02/05/20 03:06 Labs: Abnormal Lab Results - Last 24 Hours (Table) 02/05/20 02/05/20 02/06/20 Range/Units 11:25 18:45 02:30 WBC 11.0 H (3.8-10.6) k/uL Plt Count 134 L (150-450) k/uL Neutrophils # 8.2 H (1.3-7.7) k/uL APTT 33.9 H 32.5 H (22.0-30.0) sec 02/06/20 Range/Units 02:30 WBC (3.8-10.6) k/uL Plt Count (150-450) k/uL Neutrophils # (1.3-7.7) k/uL APTT 71.4 H (22.0-30.0) sec Assessment and Plan Assessment: Assessment #[address] patient in my #2 hypertension #3 dyslipidemia Plan #1 continue the current medical regimen #2 the patient can be discharged home
[2020-02-06 11:24] VITALS: TEMP 97.8
--- NOTE | 2020-02-06 13:57 | P.DS ---
Providers Date of admission: 02/03/20 13:07 Expected date of discharge: 02/06/20 Attending physician: Nguyễn Bravo Consults: 02/03/20 13:02 Consult Physician Stat Consulting Provider: [facility] Consult Reason/Comments: stemi Do you want consulting provider notified?: Already Contacted 02/03/20 15:02 Consult Physician Routine Consulting Provider: [facility] Consult Reason/Comments: Post Interventional patient Do you want consulting provider notified?: Already Contacted [facility] Course: 02/06/2020, patient seen eval examined overall respiratory status remains stable doing well denies any chest pain, denies any shortness of breath, cardiovascular services have cleared the patient for discharge, 02/05/2020, patient seen eval examined during the rounds labs reviewed medications reviewed, respiratory status remains stable patient had a episode of A. fib with RVR earlier this morning controlled with medication, now currently patient is on sinus rhythm, denies any chest pain breathing comfortably denies any cough or sputum production, LFT continued to be declining now This is a pleasant 64-year-old male without any significant past medical history, patient has been having intermittent chest pain and back pain for the last 10 days however one day prior to coming to the hospital severity of pain increases patient has significant cardiovascular disease in the family, patient brother underwent a stent placement couple of weeks ago, on arrival patient noted to have a ST segment elevation more than 2 mm in anterior chest leads suggestive of acute ST segment elevated [place], patient was eval by cardiovascular services underwent an emergent cardiac cath and angiogram and stent placement in mid LAD portion, her labs were significant for troponin level of 1.16, initially subsequent were 107, patient's initial liver enzymes were normal however today almost 10 times elevation is seen in AST and 3 times and ALT Vital signs: Vital Signs Temp 98.6 F 02/05/20 16:00 Pulse 87 02/05/20 16:00 Resp 16 02/05/20 16:00 BP 114/65 02/05/20 16:00 Pulse Ox 96 02/05/20 16:00 Intake & Output 02/04/20 02/05/20 02/05/20 18:59 06:59 18:59 Intake Total 504 532 8910.428 Output Total 1650 Balance 925 275 -565.572 Weight 77.2 kg 76.1 kg Intake: IV 75 75 Sodium Chloride 0.9% 1, 75 75 000 ml @ 75 mls/hr IV . [id number] [facility] Rx#:[id number] Intake, IV Titration 484.428 Amount Amiodarone 300 mg In 50 Dextrose 5% in Water 250 ml @ 0.5 MG/MIN 25 mls/hr IV .Q10H [facility] Rx#: [id number] Amiodarone 360 mg In 198 Dextrose 5% in Water 200 ml @ 1 MG/MIN 33.333 mls/ hr IV .Q6H [facility] Rx#: [id number] Dextrose 5% in Water 100 150 ml @ 618 mls/hr IV .Q10M [facility] with Amiodarone 150 mg Rx#:[id number] Heparin Sod,Pork in 0.45% 76.428 NaCl 25,000 unit In 0.45 % NaCl 1 250ml.bag @ 12 UNITS/KG/HR 9.264 mls/hr IV .Q24H [facility] Rx#: [id number] IV Fluid Continuation 1, 10 000 ml @ 0 mls/hr IV .STK -MED ONE Rx#:[id number] Oral 850 200 600 Output: Urine 1650 Other: Voiding Method Urinal Urinal # Voids 2 1 1 - Constitutional General appearance: average body habitus, cooperative, disheveled - EENT Eyes: PERRLA Ears: bilateral: normal - Neck Carotids: right: upstroke delayed Thyroid: bilateral: normal size - Respiratory Respiratory: bilateral: CTA - Cardiovascular Rhythm: regular Heart sounds: normal: S1, S2 - Gastrointestinal General gastrointestinal: decreased bowel sounds - Integumentary Integumentary: normal turgor - Neurologic Neurologic: CNII-XII intact - Musculoskeletal Musculoskeletal: gait normal, generalized weakness, strength equal bilaterally - Psychiatric Psychiatric: A&O x's 3, appropriate affect, intact judgment & insight CBC & Chem 7: 02/05/20 03:06 02/05/20 03:06 Labs: Abnormal Lab Results - Last 24 Hours (Table) 02/05/20 02/05/20 Range/Units 03:06 11:25 APTT 33.9 H (22.0-30.0) sec Sodium 135 L (137-145) mmol/L Carbon Dioxide 31 H (22-30) mmol/L BUN 22 H (9-20) mg/dL Glucose 105 H (74-99) mg/dL AST 215 H (17-59) U/L ALT 84 H (4-49) U/L Assessment: Ischemic cardiomyopathy ejection fraction of 45% Post [place] atrial fibrillation with RVR resolved now in sinus rhythm Acute ST segment elevated [place] in anterior leads suggestive of acute anterior wall [place] Coronary artery disease with obstruction of LAD status post emergent cardiac cath and stent placement Right lower lobe pneumonia Leukocytosis Elevated liver enzymes post [place] Patient Condition at Discharge: Good Plan - Discharge Summary Discharge Rx Participant: No New Discharge Prescriptions: New Aspirin 81 mg PO DAILY chew Prasugrel [Effient] 10 mg PO DAILY #30 tab Atorvastatin [Lipitor] 80 mg PO HS #30 tab Metoprolol Tartrate [Lopressor] 25 mg PO BID #60 tab Nitroglycerin Sl Tabs [Nitrostat] 0.4 mg SUBLINGUAL Q5M PRN #30 tab PRN Reason: Chest Pain Doxycycline [Vibramycin] 100 mg PO BID #10 cap Discharge Medication List Aspirin 81 mg PO DAILY chew 02/06/20 [Rx] Atorvastatin [Lipitor] 80 mg PO HS #30 tab 02/06/20 [Rx] Doxycycline [Vibramycin] 100 mg PO BID #10 cap 02/06/20 [Rx] Metoprolol Tartrate [Lopressor] 25 mg PO BID #60 tab 02/06/20 [Rx] Nitroglycerin Sl Tabs [Nitrostat] 0.4 mg SUBLINGUAL Q5M PRN #30 tab 02/06/20 [Rx] Prasugrel [Effient] 10 mg PO DAILY #30 tab 02/06/20 [Rx] Follow up Appointment(s)/Referral(s): Daren Yanez MD [Primary Care Provider] - 1-2 days Discharge Disposition: HOME SELF-CARE
[2020-02-06 15:41] VITALS: BP 106/63; PULSE 90
== END 2020-02-06 16:05 | disposition home or self-care (01) | DRG 246 ==
LOC: EC 12:09 → 2SICU 13:07 → 3SCARD 02-05 22:56
PROVIDERS: ADMIT Internal Medicine Sleep Medicine; ATTEND Internal Medicine Sleep Medicine
PROC: 4A023N7 Measurement of Cardiac Sampling and Pressure, Left Heart, Percutaneous Approach (ICD-10-PCS; principal; 2020-02-04)
PROC: B2111ZZ Fluoroscopy of Multiple Coronary Arteries using Low Osmolar Contrast (ICD-10-PCS; principal; 2020-02-04)
PROC: 027034Z Dilation of Coronary Artery, One Artery with Drug-eluting Intraluminal Device, Percutaneous Approach (ICD-10-PCS; principal; 2020-02-04)
DX: I21.09 ST elevation (STEMI) myocardial infarction involving other coronary artery of anterior wall (principal); J18.9 Pneumonia, unspecified organism; I25.10 Atherosclerotic heart disease of native coronary artery without angina pectoris; E78.5 Hyperlipidemia, unspecified; I10 Essential (primary) hypertension; I25.5 Ischemic cardiomyopathy; I48.91 Unspecified atrial fibrillation; R94.5 Abnormal results of liver function studies; R73.9 Hyperglycemia, unspecified; D72.829 Elevated white blood cell count, unspecified; Z91.19 Patient's noncompliance with other medical treatment and regimen; Z82.49 Family history of ischemic heart disease and other diseases of the circulatory system; Z88.0 Allergy status to penicillin
CPT/HCPCS: 36415; 71045; 80053; 83690; 83735; 83880; 84484; 85025; 85027; 85347; 85610; 85730; 93005; 93306; 93458; 96360; 96374; 99285

== ENCOUNTER 2020-02-18 11:26 | Observation (INO) | payer BC, MEDICARE ==
[2020-02-18] MEDS ORDERED: SODIUM CHLORIDE 0.9% 500 ML 500 ML IV STA (11:46)
--- NOTE | 2020-02-18 11:49 | ED ---
General Adult HPI - General Chief complaint: Arrhythmia/Palpitations Stated complaint: post 1week stent/high hr Time Seen by Provider: 02/18/20 11:30 Source: patient, RN notes reviewed, old records reviewed Mode of arrival: ambulatory Limitations: no limitations - History of Present Illness Initial comments: This is a 64-year-old male who presents emergency Department with a past medical history for a stent placement in the end of January. Patient comes in today because he states he went for a walk and is watched stated that he had a heart rate of 126 and he felt a little lightheaded. Patient states she had no chest pain he denies any palpitations but he is watched Indicating to him that he would go down back into the 70s and then occasionally above the 100 the back into the 70s. Patient was only getting his heart rate from his was not taking his own pulse or getting from a blood pressure cuff. Patient denies any shortness of breath. Patient denies any recent fever chills per patient states up until now he was feeling fine but he is concerned because of the fast heart rate. Patient states the whole episode of his heart rate going above 100 lasted less than 10 minutes. Patient is currently asymptomatic - Related Data Home Medications Medication Instructions Recorded Confirmed Losartan Potassium [Cozaar] 25 mg PO DAILY 02/18/20 02/18/20 Tamsulosin HCl [Flomax] 0.4 mg PO DIRECTED 02/18/20 02/18/20 Previous Rx's Medication Instructions Recorded Aspirin 81 mg PO DAILY chew 02/06/20 Atorvastatin [Lipitor] 80 mg PO HS #30 tab 02/06/20 Metoprolol Tartrate [Lopressor] 25 mg PO BID #60 tab 02/06/20 Nitroglycerin Sl Tabs [Nitrostat] 0.4 mg SUBLINGUAL Q5M PRN #30 tab 02/06/20 Prasugrel [Effient] 10 mg PO DAILY #30 tab 02/06/20 Allergies Allergy/AdvReac Type Severity Reaction Status Date / Time Penicillins Allergy Rash/Hives Verified 02/18/20 12:22 Review of Systems ROS Statement: Those systems with pertinent positive or pertinent negative responses have been documented in the HPI. ROS Other: All systems not noted in ROS Statement are negative. Past Medical History Past Medical History: No Reported History, Chest Pain / Angina History of Any Multi-Drug Resistant Organisms: None Reported Past Surgical History: Heart Catheterization With Stent, Orthopedic Surgery Additional Past Surgical History / Comment(s): colonoscopy, rt shoulder Past Anesthesia/Blood Transfusion Reactions: No Reported Reaction Past Psychological History: No Psychological Hx Reported Smoking Status: Never smoker - Past Family History Mother Family Medical History: Cancer General Exam - General Exam Comments Initial Comments: GENERAL: Patient is well-developed and well-nourished. Patient is nontoxic and well- hydrated and is in mild distress. ENT: Neck is soft and supple. No significant lymphadenopathy is noted. Oropharynx is clear. Moist mucous membranes. Neck has full range of motion without eliciting any pain. EYES: The sclera were anicteric and conjunctiva were pink and moist. Extraocular movements were intact and pupils were equal round and reactive to light. Eyelids were unremarkable. PULMONARY: Unlabored respirations. Good breath sounds bilaterally. No audible rales rhonchi or wheezing was noted. CARDIOVASCULAR: There is a regular rate and rhythm without any murmurs gallops or rubs. ABDOMEN: Soft and nontender with normal bowel sounds. SKIN: Skin is clear with no lesions or rashes and otherwise unremarkable. NEUROLOGIC: Patient is alert and oriented x3. Cranial nerves II through XII are grossly intact. Motor and sensory are also intact. Normal speech, volume and content. Symmetrical smile. MUSCULOSKELETAL: Normal extremities with adequate strength and full range of motion. LYMPHATICS: No significant lymphadenopathy is noted PSYCHIATRIC: Patient seems mildly anxious Limitations: no limitations Course Vital Signs 02/18/20 02/18/20 11:32 11:43 Temperature 98 F 99.2 F Pulse Rate 99 73 Respiratory 20 18 Rate Blood Pressure 130/82 119/85 O2 Sat by Pulse 99 98 Oximetry Medical Decision Making - Medical Decision Making EKG shows normal sinus rhythm at 69 bpm [place] interval is 140 QRS is 94 Q-T intervals 432 QTC is 462. Patient's EKG shows T-wave inversions in leads V2 through V6. As well as 1 and aVL - Lab Data Result diagrams: 02/18/20 11:59 02/18/20 11:59 Lab Results 02/18/20 02/18/20 02/18/20 Range/Units 11:59 11:59 11:59 WBC 6.5 (3.8-10.6) k/uL RBC 4.82 (4.30-5.90) m/uL Hgb 15.2 (13.0-17.5) gm/dL Hct 44.6 (39.0-53.0) % MCV 92.5 (80.0-100.0) fL MCH 31.6 (25.0-35.0) pg MCHC 34.2 (31.0-37.0) g/dL RDW 12.7 (11.5-15.5) % Plt Count 261 (150-450) k/uL MPV 7.6 Neutrophils % 70 % Lymphocytes % 15 % Monocytes % 9 % Eosinophils % 3 % Basophils % 1 % Neutrophils # 4.6 (1.3-7.7) k/uL Lymphocytes # 1.0 (1.0-4.8) k/uL Monocytes # 0.6 (0-1.0) k/uL Eosinophils # 0.2 (0-0.7) k/uL Basophils # 0.1 (0-0.2) k/uL Sodium 139 (137-145) mmol/L Potassium 4.6 (3.5-5.1) mmol/L Chloride 103 (98-107) mmol/L Carbon Dioxide 31 H (22-30) mmol/L Anion Gap 5 mmol/L BUN 24 H (9-20) mg/dL Creatinine 1.13 (0.66-1.25) mg/dL Est GFR (CKD-EPI)AfAm 79 (>60 ml/min/1.73 sqM) Est GFR (CKD-EPI)NonAf 68 (>60 ml/min/1.73 sqM) Glucose 97 (74-99) mg/dL Calcium 9.4 (8.4-10.2) mg/dL Magnesium 2.2 (1.6-2.3) mg/dL Total Bilirubin 0.6 (0.2-1.3) mg/dL AST 31 (17-59) U/L ALT 38 (4-49) U/L Alkaline Phosphatase 91 (38-126) U/L Troponin I 0.190 H* (0.000-0.034) ng/mL Total Protein 6.9 (6.3-8.2) g/dL Albumin 3.9 (3.5-5.0) g/dL Disposition Clinical Impression: Palpitations, Elevated troponin Disposition: ADMITTED IP TO THIS HOSP Referrals: Daren Yanez MD [Primary Care Provider] - 1-2 days Time of Disposition: 13:22
[2020-02-18 12:09] LABS: Basophils # (A) 0.1 k/uL (0-0.2); Basophils % (A) 1 %; Eosinophils # (A) 0.2 k/uL (0-0.7); Eosinophils % (A) 3 %; HCT 44.6 % (39.0-53.0); HGB 15.2 gm/dL (13.0-17.5); Lymphocytes % (A) 15 %; MCH 31.6 pg (25.0-35.0); MCHC 34.2 g/dL (31.0-37.0); MCV 92.5 fL (80.0-100.0); Mean Platelet Volume 7.6; Monocytes # (A) 0.6 k/uL (0-1.0); Monocytes % (A) 9 %; Neutrophils # (A) 4.6 k/uL (1.3-7.7); Neutrophils % (A) 70 %; Platelet Count 261 k/uL (150-450); RBC 4.82 m/uL (4.30-5.90); RDW 12.7 % (11.5-15.5); WBC 6.5 k/uL (3.8-10.6)
[2020-02-18 12:23] LABS: Albumin 3.9 g/dL (3.5-5.0); Calcium 9.4 mg/dL (8.4-10.2); Magnesium 2.2 mg/dL (1.6-2.3); Potassium 4.6 mmol/L (3.5-5.1); Total Bilirubin 0.6 mg/dL (0.2-1.3); Total Protein 6.9 g/dL (6.3-8.2)
--- NOTE | 2020-02-18 12:31 | XR ---
EXAMINATION TYPE: XR chest 2V DATE OF EXAM: 02/18/2020 COMPARISON: 02/03/2020 TECHNIQUE: PA and lateral views submitted. HISTORY: Elevated heart rate FINDINGS: The lungs are clear and there is no pneumothorax, pleural effusion, or focal pneumonia. Heart size normal. No overt failure. Biapical pleural thickening. IMPRESSION: 1. No acute process.
[2020-02-18] MEDS ORDERED: NITROGLYCERIN SL TABS 0.4 MG TAB SUBLINGUAL PRN (13:23)
[2020-02-18] MEDS ORDERED: ASPIRIN 325 MG TAB PO STA (17:50)
[2020-02-18] MEDS ORDERED: ATORVASTATIN 80 MG TAB PO SCH (21:15)
[2020-02-18] MEDS: METOPROLOL TARTRATE 25 MG TAB PO SCH (21:34)
[2020-02-19 00:03] LABS: Cholesterol 115 mg/dL (<200); HDL Cholesterol 32 mg/dL (40-60); LDL Cholesterol,Calculated 61 mg/dL (0-99); Triglycerides 111 mg/dL (<150)
[2020-02-19 08:18] VITALS: TEMP 98.3
[2020-02-19] MEDS: METOPROLOL TARTRATE 25 MG TAB PO SCH (08:20)
[2020-02-19] MEDS ORDERED: LOSARTAN 25 MG TAB PO SCH (09:00)
[2020-02-19] MEDS ORDERED: ASPIRIN 325 MG TAB PO SCH (09:00)
[2020-02-19] MEDS ORDERED: PRASUGREL 10 MG TAB PO SCH (09:00)
[2020-02-19] MEDS ORDERED: TAMSULOSIN 0.4 MG CAP.ER.24H PO SCH (09:00)
[2020-02-19] MEDS ORDERED: ASPIRIN 81 MG PO SCH (09:00)
[2020-02-19 11:13] VITALS: BP 114/73; PULSE 67; RESP 16
--- NOTE | 2020-02-19 11:50 | P.CRDCN ---
History of Present Illness Consult date: 02/19/20 History of present illness: CHIEF COMPLAINT: Palpitations HISTORY OF PRESENT ILLNESS: This is a 64-year-old male with a past medical history significant for hypertension and coronary artery disease with recent PCI to the mid LAD. Patient follows in the office with Dr. Rodarte.. We have been asked to see the patient in consultation for palpitations and abnormal troponin. Patient was recently hospitalized on 02/03/2020 secondary to STEMI. He underwent cardiac catheterization with Dr. Rodarte with PCI to the mid LAD. Bong ferrer was also noted to have a 30-40% lesion of the proximal LAD. Echo cardiac exam completed that time revealed ejection fraction 45-50%, moderate tricuspid regurgitation and moderate pulmonary hypertension. Patient states he was walking around his kitchen yesterday when he looked at this FitBit and noticed that his heart rate was in the 120s. He denied feeling any palpitations. He states he did feel a little bit dizzy at that time. He denies chest pain or pressure. He denies shortness of breath. DIAGNOSTICS: EKG reveals sinus mechanism with T-wave inversions in the lateral leads unchanged from previous EKG Chest xray negative for acute process Laboratory data: W BC 6.5. Hemoglobin 15.2. Platelet count 261. Sodium 139. Potassium 4.6. BUN 24. Creatinine 1.13. Troponin 0.190. 0.184. 0.191. Current home cardiac medications include losartan 25 mg daily, Lipitor 80 mg daily, aspirin 81 mg daily, Effient 10 mg daily, and metoprolol 25 mg twice a day REVIEW OF SYSTEMS: At the time of my exam: CONSTITUTIONAL: Denies fever or chills. HEENT: Denies blurred vision, vision changes, or eye pain. Denies hemoptysis CARDIOVASCULAR: Denies chest pain, orthopnea, PND or palpitations RESPIRATORY: No shortness of breath. GASTROINTESTINAL: Denies abdominal pain. Denies nausea or vomiting. HEMATOLOGIC: Denies bleeding disorders. GENITOURINARY: Denies any blood in urine. SKIN: Denies pruitis. Denies rash. PHYSICAL EXAM: VITAL SIGNS: Reviewed. GENERAL: Well-developed in no acute distress. HEENT: Head is normocephalic. Pupils are equal, round. Sclerae anicteric. Mucous membranes of the mouth are moist. Neck supple. No JVD or thyromegaly LUNGS: Respirations even and unlabored. Lungs essentially clear to auscultation bilaterally. HEART: Regular rate and rhythm. S1 and S2 heard. ABDOMEN: Soft. Nondistended. Nontender. EXTREMITIES: Normal range of motion. No clubbing or cyanosis. Peripheral pulses intact. No lower extremity edema NEUROLOGIC: Awake and alert. Oriented x 3. ASSESSMENT: Elevated heart rate, per patient on his Fit Bit, no documented tachycardia since admission Coronary artery disease with previous PCI to mid LAD, January 2020 Abnormal troponins, no evidence of acute coronary syndrome Hypertension PLAN: No need to repeat echocardiogram as this was performed in January 2020 Resume home cardiac medications Continue telemetry monitoring Further recommendations pending patient's course Nurse practitioner note has been reviewed by physician. Signing provider agrees with the documented findings, assessment, and plan of care. Past Medical History Past Medical History: No Reported History, Chest Pain / Angina, Hypertension, Myocardial Infarction ([place]) Last Myocardial Infarction Date:: 02/03/20 History of Any Multi-Drug Resistant Organisms: None Reported Past Surgical History: Heart Catheterization With Stent, Orthopedic Surgery Additional Past Surgical History / Comment(s): colonoscopy, rt shoulder Past Anesthesia/Blood Transfusion Reactions: No Reported Reaction Date of Last Stent Placement:: 02/03/20 Past Psychological History: No Psychological Hx Reported Smoking Status: Never smoker Past Alcohol Use History: None Reported Past Drug Use History: None Reported - Past Family History Father History Unknown: Yes Family Medical History: Myocardial Infarction ([place]) Mother Family Medical History: Cancer Medications and Allergies Home Medications Medication Instructions Recorded Confirmed Type Aspirin 81 mg PO DAILY chew 02/06/20 02/18/20 Rx Atorvastatin [Lipitor] 80 mg PO HS #30 tab 02/06/20 02/18/20 Rx Metoprolol Tartrate [Lopressor] 25 mg PO BID #60 tab 02/06/20 02/18/20 Rx Nitroglycerin Sl Tabs [Nitrostat] 0.4 mg SUBLINGUAL Q5M PRN #30 tab 02/06/20 02/18/20 Rx Prasugrel [Effient] 10 mg PO DAILY #30 tab 02/06/20 02/18/20 Rx Losartan Potassium [Cozaar] 25 mg PO DAILY 02/18/20 02/18/20 History Tamsulosin HCl [Flomax] 0.4 mg PO DIRECTED 02/18/20 02/18/20 History Allergies Allergy/AdvReac Type Severity Reaction Status Date / Time Penicillins Allergy Rash/Hives Verified 02/18/20 12:22 Physical Exam Vitals: Vital Signs Temp Pulse Pulse Resp BP BP Pulse Ox 02/19/20 11:11 67 16 114/73 95 02/19/20 08:00 98.3 F 77 18 135/86 99 02/19/20 04:00 97.8 F 68 16 102/64 98 02/19/20 02:00 59 L 16 02/19/20 00:00 98.1 F 59 L 16 103/63 97 02/18/20 20:00 71 16 02/18/20 19:40 97.9 F 71 16 129/70 97 02/18/20 14:00 98.1 F 64 16 108/67 96 02/18/20 13:30 98.2 F 64 18 115/68 98 02/18/20 13:00 60 16 108/70 97 02/18/20 12:30 64 20 106/75 97 02/18/20 12:00 67 19 119/85 96 02/18/20 11:43 99.2 F 73 18 119/85 98 02/18/20 11:42 97 Intake and Output 02/18/20 02/19/20 02/19/20 22:59 06:59 14:59 Other: Voiding Method Toilet Toilet # Voids 1 1 Weight 74.843 kg 73.9 kg Results 02/18/20 11:59 02/18/20 11:59 Cardiac Enzymes 02/18/20 02/18/20 02/18/20 Range/Units 11:59 11:59 14:49 AST 31 (17-59) U/L Troponin I 0.190 H* 0.184 H* (0.000-0.034) ng/mL 02/18/20 Range/Units 17:47 AST (17-59) U/L Troponin I 0.191 H* (0.000-0.034) ng/mL Lipids 02/18/20 Range/Units 11:59 Triglycerides 111 (<150) mg/dL Cholesterol 115 (<200) mg/dL HDL Cholesterol 32 L (40-60) mg/dL CBC 02/18/20 Range/Units 11:59 WBC 6.5 (3.8-10.6) k/uL RBC 4.82 (4.30-5.90) m/uL Hgb 15.2 (13.0-17.5) gm/dL Hct 44.6 (39.0-53.0) % Plt Count 261 (150-450) k/uL Comprehensive Metabolic Panel 02/18/20 Range/Units 11:59 Sodium 139 (137-145) mmol/L Potassium 4.6 (3.5-5.1) mmol/L Chloride 103 (98-107) mmol/L Carbon Dioxide 31 H (22-30) mmol/L BUN 24 H (9-20) mg/dL Creatinine 1.13 (0.66-1.25) mg/dL Glucose 97 (74-99) mg/dL Calcium 9.4 (8.4-10.2) mg/dL AST 31 (17-59) U/L ALT 38 (4-49) U/L Alkaline Phosphatase 91 (38-126) U/L Total Protein 6.9 (6.3-8.2) g/dL Albumin 3.9 (3.5-5.0) g/dL Current Medications Generic Name Dose Route Start Last Admin Trade Name Freq PRN Reason Stop Dose Admin Aspirin 81 mg 02/19/20 09:00 02/19/20 08:20 Aspirin 81 Mg PO 81 mg DAILY ELIZABETH Administration Atorvastatin Calcium 80 mg 02/18/20 21:15 02/18/20 21:34 Atorvastatin 80 Mg Tab PO 80 mg HS ELIZABETH Administration Losartan Potassium 25 mg 02/19/20 09:00 02/19/20 08:20 Losartan 25 Mg Tab PO 25 mg DAILY ELIZABETH Administration Metoprolol Tartrate 25 mg 02/18/20 21:15 02/19/20 08:20 Metoprolol Tartrate 25 Mg Tab PO 25 mg BID ELIZABETH Administration Nitroglycerin 0.4 mg 02/18/20 13:23 Nitroglycerin Sl Tabs 0.4 Mg Tab SUBLINGUAL Q5M PRN Chest Pain Prasugrel 10 mg 02/19/20 09:00 02/19/20 08:20 Prasugrel 10 Mg Tab PO 10 mg DAILY ELIZABETH Administration Tamsulosin HCl 0.4 mg 02/19/20 09:00 02/19/20 08:20 Tamsulosin 0.4 Mg Cap.Er.24h PO 0.4 mg DAILY ELIZABETH Administration Intake and Output 02/18/20 02/19/20 02/19/20 22:59 06:59 14:59 Other: Voiding Method Toilet Toilet # Voids 1 1 Weight 74.843 kg 73.9 kg 02/18/20 11:59 02/18/20 11:59
--- NOTE | 2020-02-19 23:37 | P.HPIM ---
History of Present Illness H&P Date: 02/19/20 Chief Complaint: Heart racing History of presenting complaint: This is a 64-year-old patient, follows with Dr. Yanez. Patient was recently in the hospital being discharged on February 05. Patient has presented with ST elevation microinfarction in the successful angioplasty stenting to the LAD. 2- D echocardiogram showed EF of 45-50% with wall motion abnormality moderate tricuspid regurgitation and moderate pulmonary hypertension. Patient now presented with an episode of feeling slightly lightheaded for about 15 minutes. No chest pain. No palpitation. No change in vision. No headache. No focal weakness. Patient does wear a watch that showed a heart rate of 126. No fever no chills. No chest pain. episode lasted for less than 15 minutes. Past medical history to include: Hypertension, coronary artery with stent Social history: No history of smoking or alcohol. 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 EYES: Pupils equal. Conjunctiva normal. HEENT: External appearance of nose and ears normal, oral cavity grossly normal. NECK: JVD not raised; masses not palpable. HEART: First and second heart sounds are normal; no edema. LUNGS: Respiratory rate normal; clear to auscultation. ABDOMEN: Soft, nontender, liver spleen not palpable, no masses palpable. PSYCH: Alert and oriented x3; mood and affect normal. NEUROLOGICAL: Cranial nerves grossly intact; no facial asymmetry, power and sensation grossly intact. LYMPHATICS: No lymph nodes palpable in the axilla and neck INVESTIGATIONS, reviewed in the clinical context: White count 6.5 hemoglobin 15.2 platelets 261 potassium 4.6 creatinine 1.13 Troponin I 0.190, 0.184, 0.191 LDL 61 EKG tracing personally reviewed by me-sinus rhythm with flipped T waves in anterior leads Chest x-ray film personally reviewed by me-lung griffith clear Previous testing: January 27: 2-D echocardiogram: Moderate concentric LVH, EF 45-50%, wall motion abnormalities, moderate tricuspid regurgitation, moderate pulmonary hypertension Assessment: -Episode of systems arrhythmia lasting about 15 minutes. Patient was slightly lightheaded. Self-limiting. No further episode. -Acute ST elevation myocardial infarction on 02/03/2020 -Coronary artery disease with stent to LAD -Essential hypertension -Moderate tricuspid regurgitation -Secondary moderate pulmonary hypertension -Troponin leak which is likely from his recent coronary intervention still coming down.. No acute coronary syndrome Plan: Patient is put on telemetry home medications were continued. Cardiology of the consulted. Home medications renewed Past Medical History Past Medical History: No Reported History, Chest Pain / Angina, Hypertension, Myocardial Infarction ([place]) Last Myocardial Infarction Date:: 02/03/20 History of Any Multi-Drug Resistant Organisms: None Reported Past Surgical History: Heart Catheterization With Stent, Orthopedic Surgery Additional Past Surgical History / Comment(s): colonoscopy, rt shoulder Past Anesthesia/Blood Transfusion Reactions: No Reported Reaction Date of Last Stent Placement:: 02/03/20 Past Psychological History: No Psychological Hx Reported Smoking Status: Never smoker Past Alcohol Use History: None Reported Past Drug Use History: None Reported - Past Family History Father History Unknown: Yes Family Medical History: Myocardial Infarction ([place]) Mother Family Medical History: Cancer Medications and Allergies Home Medications Medication Instructions Recorded Confirmed Type Aspirin 81 mg PO DAILY chew 02/06/20 02/18/20 Rx Atorvastatin [Lipitor] 80 mg PO HS #30 tab 02/06/20 02/18/20 Rx Metoprolol Tartrate [Lopressor] 25 mg PO BID #60 tab 02/06/20 02/18/20 Rx Nitroglycerin Sl Tabs [Nitrostat] 0.4 mg SUBLINGUAL Q5M PRN #30 tab 02/06/20 02/18/20 Rx Prasugrel [Effient] 10 mg PO DAILY #30 tab 02/06/20 02/18/20 Rx Losartan Potassium [Cozaar] 25 mg PO DAILY 02/18/20 02/18/20 History Tamsulosin HCl [Flomax] 0.4 mg PO DIRECTED 02/18/20 02/18/20 History Allergies Allergy/AdvReac Type Severity Reaction Status Date / Time Penicillins Allergy Rash/Hives Verified 02/18/20 12:22 Physical Exam Vitals: Vital Signs Temp Pulse Pulse Resp BP BP Pulse Ox 02/19/20 08:00 98.3 F 77 18 135/86 99 02/19/20 04:00 97.8 F 68 16 102/64 98 02/19/20 02:00 59 L 16 02/19/20 00:00 98.1 F 59 L 16 103/63 97 02/18/20 20:00 71 16 02/18/20 19:40 97.9 F 71 16 129/70 97 02/18/20 14:00 98.1 F 64 16 108/67 96 02/18/20 13:30 98.2 F 64 18 115/68 98 02/18/20 13:00 60 16 108/70 97 02/18/20 12:30 64 20 106/75 97 02/18/20 12:00 67 19 119/85 96 02/18/20 11:43 99.2 F 73 18 119/85 98 02/18/20 11:42 97 02/18/20 11:32 98 F 99 20 130/82 99 Intake and Output 02/18/20 02/19/20 02/19/20 22:59 06:59 14:59 Other: Voiding Method Toilet Toilet # Voids 1 1 Weight 74.843 kg 73.9 kg Results CBC & Chem 7: 02/18/20 11:59 02/18/20 11:59 Labs: Abnormal Lab Results - Last 24 Hours (Table) 02/18/20 02/18/20 02/18/20 Range/Units 11:59 11:59 11:59 Carbon Dioxide 31 H (22-30) mmol/L BUN 24 H (9-20) mg/dL Troponin I 0.190 H* (0.000-0.034) ng/mL HDL Cholesterol 32 L (40-60) mg/dL 02/18/20 02/18/20 Range/Units 14:49 17:47 Carbon Dioxide (22-30) mmol/L BUN (9-20) mg/dL Troponin I 0.184 H* 0.191 H* (0.000-0.034) ng/mL HDL Cholesterol (40-60) mg/dL Thrombosis Risk Factor Assmnt - Choose All That Apply Each Risk Factor Represents 2 Points: Age 61-74 years Thrombosis Risk Factor Assessment Total Risk Factor Score: 2 Thrombosis Risk Factor Assessment Level: Low Risk
--- NOTE | 2020-02-19 23:39 | P.DS ---
Providers Date of admission: 02/18/20 13:23 Expected date of discharge: 02/19/20 Attending physician: Lb Downing Consults: 02/18/20 13:23 Consult Physician Urgent Consulting Provider: [facility] Consult Reason/Comments: Palpitations, elevated troponin Do you want consulting provider notified?: Yes [facility] Course: Chief Complaint: Heart racing History of presenting complaint: This is a 64-year-old patient, follows with Dr. Yanez. Patient was recently in the hospital being discharged on February 05. Patient has presented with ST elevation microinfarction in the successful angioplasty stenting to the LAD. 2- D echocardiogram showed EF of 45-50% with wall motion abnormality moderate tricuspid regurgitation and moderate pulmonary hypertension. Patient now presented with an episode of feeling slightly lightheaded for about 15 minutes. No chest pain. No palpitation. No change in vision. No headache. No focal weakness. Patient does wear a watch that showed a heart rate of 126. No fever no chills. No chest pain. episode lasted for less than 15 minutes. EKG was unremarkable. Patient felt that was self-limiting arrhythmia. Seen by cardiology. Cleared for discharge. Consultation: Dr. Rodarte from cardiology Past medical history to include: Hypertension, coronary artery with stent to LAD Social history: No history of smoking or alcohol. 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 EYES: Pupils equal. Conjunctiva normal. HEENT: External appearance of nose and ears normal, oral cavity grossly normal. NECK: JVD not raised; masses not palpable. HEART: First and second heart sounds are normal; no edema. LUNGS: Respiratory rate normal; clear to auscultation. ABDOMEN: Soft, nontender, liver spleen not palpable, no masses palpable. PSYCH: Alert and oriented x3; mood and affect normal. INVESTIGATIONS, reviewed in the clinical context: White count 6.5 hemoglobin 15.2 platelets 261 potassium 4.6 creatinine 1.13 Troponin I 0.190, 0.184, 0.191 LDL 61 EKG tracing personally reviewed by me-sinus rhythm with flipped T waves in anterior leads Chest x-ray film personally reviewed by me-lung griffith clear Previous testing: Piter 20: 2-D echocardiogram: Moderate concentric LVH, EF 45-50%, wall motion abnormalities, moderate tricuspid regurgitation, moderate pulmonary hypertension Assessment: -Episode of systems arrhythmia lasting about 15 minutes. Patient was slightly lightheaded. Self-limiting. No further episode. -Acute ST elevation myocardial infarction on 02/03/2020 -Coronary artery disease with stent to LAD -Essential hypertension -Moderate tricuspid regurgitation -Secondary moderate pulmonary hypertension -Troponin leak which is likely from his recent coronary intervention still coming down.. No acute coronary syndrome Disposition: Home Patient Condition at Discharge: Stable Plan - Discharge Summary Discharge Rx Participant: Yes New Discharge Prescriptions: Continue Aspirin 81 mg PO DAILY chew Prasugrel [Effient] 10 mg PO DAILY #30 tab Atorvastatin [Lipitor] 80 mg PO HS #30 tab Metoprolol Tartrate [Lopressor] 25 mg PO BID #60 tab Nitroglycerin Sl Tabs [Nitrostat] 0.4 mg SUBLINGUAL Q5M PRN #30 tab PRN Reason: Chest Pain Losartan Potassium [Cozaar] 25 mg PO DAILY Tamsulosin HCl [Flomax] 0.4 mg PO DIRECTED Discharge Medication List Aspirin 81 mg PO DAILY chew 02/06/20 [Rx] Atorvastatin [Lipitor] 80 mg PO HS #30 tab 02/06/20 [Rx] Metoprolol Tartrate [Lopressor] 25 mg PO BID #60 tab 02/06/20 [Rx] Nitroglycerin Sl Tabs [Nitrostat] 0.4 mg SUBLINGUAL Q5M PRN #30 tab 02/06/20 [Rx] Prasugrel [Effient] 10 mg PO DAILY #30 tab 02/06/20 [Rx] Losartan Potassium [Cozaar] 25 mg PO DAILY 02/18/20 [History] Tamsulosin HCl [Flomax] 0.4 mg PO DIRECTED 02/18/20 [History] Follow up Appointment(s)/Referral(s): Daren Yanez MD [Primary Care Provider] - 02/29/20 11:00 am () Med Rodarte DO [STAFF PHYSICIAN] - 02/27/20 1:45 pm (Wednesday) Patient Instructions/Handouts: Tachycardia (GEN) Activity/Diet/Wound Care/Special Instructions: activity/ return to work orders as per cardiology Discharge Disposition: HOME SELF-CARE
== END 2020-02-19 13:48 | disposition home or self-care (01) ==
LOC: EC 11:26 → 3SCARD 13:23
PROVIDERS: ADMIT Hospitalist; ATTEND Hospitalist
DX: I49.9 Cardiac arrhythmia, unspecified (principal); R42 Dizziness and giddiness; R00.2 Palpitations; I25.2 Old myocardial infarction; I25.10 Atherosclerotic heart disease of native coronary artery without angina pectoris; R79.89 Other specified abnormal findings of blood chemistry; R00.0 Tachycardia, unspecified; I10 Essential (primary) hypertension; Z95.5 Presence of coronary angioplasty implant and graft; I07.1 Rheumatic tricuspid insufficiency; I27.20 Pulmonary hypertension, unspecified; Z79.82 Long term (current) use of aspirin; Z79.899 Other long term (current) drug therapy; Z79.02 Long term (current) use of antithrombotics/antiplatelets; Z88.0 Allergy status to penicillin; Z82.49 Family history of ischemic heart disease and other diseases of the circulatory system; Z80.9 Family history of malignant neoplasm, unspecified
CPT/HCPCS: 93005 ×2; 96360; 99285; 36415; 80061; 80053; 83735; 84484; 85025; 71046; G0378 ×2

== ENCOUNTER 2020-02-22 08:44 | Emergency (ER) | payer BC ==
[2020-02-22 08:50] VITALS: RESP 16
[2020-02-22] MEDS ORDERED: MECLIZINE 12.5 MG TAB PO STA (09:15)
[2020-02-22] MEDS ORDERED: ONDANSETRON 4 MG/2 ML VIAL IVP STA (09:15)
[2020-02-22] MEDS ORDERED: SODIUM CHLORIDE 0.9% 1,000 ML IV STA (09:15)
--- NOTE | 2020-02-22 09:21 | ED ---
Dizziness HPI - General Source: patient, RN notes reviewed Mode of arrival: ambulatory Limitations: no limitations <Abundio Thurman - Last Filed: 02/22/20 10:36> <Brandon Weiss - Last Filed: 02/22/20 10:52> - General Chief Complaint: Dizziness Stated Complaint: Dizziness, abd pain Time Seen by Provider: 02/22/20 09:00 - History of Present Illness Initial Comments: 64-year-old male presents emergency Department chief complaint of dizziness. Patient states that he noticed when he stood up and walked quickly that he became lightheaded or dizzy. Patient states he has no symptoms at rest. Denies any chest pain shortness of breath focal weakness he states he feels nauseated because he does not use morning. Patient has no history of hyperglycemia. Patient offers no other complaints. (Abundio Thurman) - Related Data Home Medications Medication Instructions Recorded Confirmed Losartan Potassium [Cozaar] 25 mg PO DAILY 02/18/20 02/22/20 Tamsulosin HCl [Flomax] 0.4 mg PO DAILY 02/18/20 02/22/20 Previous Rx's Medication Instructions Recorded Aspirin 81 mg PO DAILY chew 02/06/20 Atorvastatin [Lipitor] 80 mg PO HS #30 tab 02/06/20 Metoprolol Tartrate [Lopressor] 25 mg PO BID #60 tab 02/06/20 Nitroglycerin Sl Tabs [Nitrostat] 0.4 mg SUBLINGUAL Q5M PRN #30 tab 02/06/20 Prasugrel [Effient] 10 mg PO DAILY #30 tab 02/06/20 Meclizine [Antivert] 25 mg PO TID PRN #15 tab 02/22/20 Allergies Allergy/AdvReac Type Severity Reaction Status Date / Time Penicillins Allergy Rash/Hives Verified 02/22/20 09:23 Review of Systems ROS Other: All systems not noted in ROS Statement are negative. <Abundio Thurman - Last Filed: 02/22/20 10:36> ROS Other: All systems not noted in ROS Statement are negative. <Brandon Weiss - Last Filed: 02/22/20 10:52> ROS Statement: Those systems with pertinent positive or pertinent negative responses have been documented in the HPI. Past Medical History Past Medical History: No Reported History, Chest Pain / Angina, Hypertension, Myocardial Infarction ([place]) Last Myocardial Infarction Date:: 02/03/20 History of Any Multi-Drug Resistant Organisms: None Reported Past Surgical History: Heart Catheterization With Stent, Orthopedic Surgery Additional Past Surgical History / Comment(s): colonoscopy, rt shoulder Past Anesthesia/Blood Transfusion Reactions: No Reported Reaction Date of Last Stent Placement:: 02/03/20 Past Psychological History: No Psychological Hx Reported Smoking Status: Never smoker Past Alcohol Use History: None Reported Past Drug Use History: None Reported - Past Family History Father History Unknown: Yes Family Medical History: Myocardial Infarction ([place]) Mother Family Medical History: Cancer <Abundio Thurman - Last Filed: 02/22/20 10:36> General Exam Limitations: no limitations General appearance: alert, in no apparent distress Head exam: Present: atraumatic, normocephalic, normal inspection Respiratory exam: Present: normal lung sounds bilaterally. Absent: respiratory distress, wheezes, rales, rhonchi, stridor Cardiovascular Exam: Present: regular rate, normal rhythm, normal heart sounds. Absent: systolic murmur, diastolic murmur, rubs, gallop, clicks Neurological exam: Present: alert, reflexes normal. Absent: motor sensory deficit Skin exam: Present: warm, dry, intact, normal color. Absent: rash <Abundio Thurman - Last Filed: 02/22/20 10:36> Course <Brandon Weiss - Last Filed: 02/22/20 10:52> Vital Signs 02/22/20 02/22/20 02/22/20 08:48 09:14 10:44 Temperature 98 F 98.0 F 97.8 F Pulse Rate 93 75 73 Respiratory 16 16 16 Rate Blood Pressure 127/74 126/85 117/79 O2 Sat by Pulse 99 98 99 Oximetry - Reevaluation(s) Reevaluation #1: 02/22/20 10:51 PA supervision: I personally evaluate this patient in case patient does present with complaints of dizziness. This further workup is unremarkable he'll be admitted however for inpatient evaluation and monitoring. Case discussed with Dr. Downing (Brandon Weiss) EKG Findings - EKG Comments: EKG Findings:: EKG performed at 9:20 normal sinus rhythm there are old EKG changes but no acute changes EKG performed later 75 SC 142 QRS 92 QT status QTC 414/462 <Abundio Thurman - Last Filed: 02/22/20 10:36> Medical Decision Making - Lab Data Result diagrams: 02/22/20 09:24 02/22/20 09:24 <Abundio Thurman - Last Filed: 02/22/20 10:36> - Lab Data Result diagrams: 02/22/20 09:24 02/22/20 09:24 <Brandon Weiss - Last Filed: 02/22/20 10:52> - Medical Decision Making Patient reevaluated states that his symptoms are resolved. Updated on lab results, EKG. Patient labs reviewed shows evidence of mildly elevated troponin though this is improved from prior troponins. Patient's had no chest pain or shortness breath. Patient discharged in stable condition as he is asymptomatic patient agree to plan. (Abundio Thurman) - Lab Data Lab Results 02/22/20 02/22/20 02/22/20 Range/Units 09:24 09:24 09:24 WBC 6.8 (3.8-10.6) k/uL RBC 4.41 (4.30-5.90) m/uL Hgb 13.6 (13.0-17.5) gm/dL Hct 41.3 (39.0-53.0) % MCV 93.6 (80.0-100.0) fL MCH 30.7 (25.0-35.0) pg MCHC 32.8 (31.0-37.0) g/dL RDW 13.1 (11.5-15.5) % Plt Count 211 (150-450) k/uL MPV 7.8 Neutrophils % 76 % Lymphocytes % 14 % Monocytes % 6 % Eosinophils % 2 % Basophils % 1 % Neutrophils # 5.2 (1.3-7.7) k/uL Lymphocytes # 0.9 L (1.0-4.8) k/uL Monocytes # 0.4 (0-1.0) k/uL Eosinophils # 0.1 (0-0.7) k/uL Basophils # 0.1 (0-0.2) k/uL Sodium 139 (137-145) mmol/L Potassium 4.6 (3.5-5.1) mmol/L Chloride 104 (98-107) mmol/L Carbon Dioxide 29 (22-30) mmol/L Anion Gap 6 mmol/L BUN 21 H (9-20) mg/dL Creatinine 0.96 (0.66-1.25) mg/dL Est GFR (CKD-EPI)AfAm >90 (>60 ml/min/1.73 sqM) Est GFR (CKD-EPI)NonAf 83 (>60 ml/min/1.73 sqM) Glucose 122 H (74-99) mg/dL Calcium 9.1 (8.4-10.2) mg/dL Magnesium 1.9 (1.6-2.3) mg/dL Total Bilirubin 0.5 (0.2-1.3) mg/dL AST 29 (17-59) U/L ALT 35 (4-49) U/L Alkaline Phosphatase 91 (38-126) U/L Troponin I 0.077 H* (0.000-0.034) ng/mL Total Protein 6.5 (6.3-8.2) g/dL Albumin 3.8 (3.5-5.0) g/dL Disposition Is patient prescribed a controlled substance at d/c from ED?: No Time of Disposition: 10:38 <Abundio Thurman - Last Filed: 02/22/20 10:36> <Brandon Weiss - Last Filed: 02/22/20 10:52> Clinical Impression: Vertigo Disposition: HOME SELF-CARE Condition: Stable Instructions (If sedation given, give patient instructions): Dizziness (ED) Additional Instructions: Please return to the Emergency Department if symptoms worsen or any other concerns. Prescriptions: Meclizine [Antivert] 25 mg PO TID PRN #15 tab PRN Reason: Vertigo Referrals: Daren Yanez MD [Primary Care Provider] - 1-2 days
[2020-02-22 09:50] LABS: Basophils # (A) 0.1 k/uL (0-0.2); Basophils % (A) 1 %; Eosinophils # (A) 0.1 k/uL (0-0.7); Eosinophils % (A) 2 %; HCT 41.3 % (39.0-53.0); HGB 13.6 gm/dL (13.0-17.5); Lymphocytes # (A) 0.9 k/uL (1.0-4.8); Lymphocytes % (A) 14 %; MCH 30.7 pg (25.0-35.0); MCHC 32.8 g/dL (31.0-37.0); MCV 93.6 fL (80.0-100.0); Mean Platelet Volume 7.8; Monocytes # (A) 0.4 k/uL (0-1.0); Monocytes % (A) 6 %; Neutrophils # (A) 5.2 k/uL (1.3-7.7); Neutrophils % (A) 76 %; Platelet Count 211 k/uL (150-450); RBC 4.41 m/uL (4.30-5.90); RDW 13.1 % (11.5-15.5); WBC 6.8 k/uL (3.8-10.6)
[2020-02-22 09:51] LABS: ALT 35 U/L (4-49); AST 29 U/L (17-59); African American GFR (CKD) >90 (>60 ml/min/1.73 sqM); Albumin 3.8 g/dL (3.5-5.0); Alkaline Phosphatase 91 U/L (38-126); Anion Gap 6 mmol/L; Blood Urea Nitrogen 21 mg/dL (9-20); Calcium 9.1 mg/dL (8.4-10.2); Carbon Dioxide 29 mmol/L (22-30); Chloride 104 mmol/L (98-107); Glucose 122 mg/dL (74-99); Magnesium 1.9 mg/dL (1.6-2.3); Non-African American GFR(CKD) 83 (>60 ml/min/1.73 sqM); Potassium 4.6 mmol/L (3.5-5.1); Sodium 139 mmol/L (137-145); Total Bilirubin 0.5 mg/dL (0.2-1.3); Total Protein 6.5 g/dL (6.3-8.2)
--- NOTE | 2020-02-22 10:03 | XR ---
EXAMINATION TYPE: XR chest 2V DATE OF EXAM: 02/22/2020 COMPARISON: Chest x-ray February 18, 2020 HISTORY: Dizziness and weakness. TECHNIQUE: Frontal and lateral views of the chest are obtained. FINDINGS: Overlying EKG leads are redemonstrated. There is no suspicious new focal air space opacity , pleural effusion, or pneumothorax seen. The cardiac silhouette size remains within normal limits. The osseous structures are intact. IMPRESSION: No acute cardiopulmonary process. No significant change from prior.
[2020-02-22 10:57] VITALS: BP 118/75; PULSE 72; TEMP 97.6
== END 2020-02-22 10:57 | disposition home or self-care (01) ==
LOC: EC 08:44
DX: R42 Dizziness and giddiness (principal); R77.8 Other specified abnormalities of plasma proteins; R11.0 Nausea; I10 Essential (primary) hypertension; I25.2 Old myocardial infarction; Z88.0 Allergy status to penicillin; Z79.899 Other long term (current) drug therapy; Z95.5 Presence of coronary angioplasty implant and graft; Z82.49 Family history of ischemic heart disease and other diseases of the circulatory system
CPT/HCPCS: 36415; 93005; 80053; 83735; 84484; 85025; 71046; 99284; 96374; 96361; J2405

== ENCOUNTER 2021-01-06 23:01 | Emergency (ER) | payer BC ==
--- NOTE | 2021-01-07 03:28 | XR ---
EXAMINATION TYPE: XR chest 2V DATE OF EXAM: 01/07/2021 COMPARISON: 02/22/2020 HISTORY: Cough TECHNIQUE: 2 views FINDINGS: Heart and mediastinum are normal. Lungs are clear. Diaphragm is normal. Bony thorax is inta ct. IMPRESSION: Normal chest. No change.
--- NOTE | 2021-01-07 05:49 | ED ---
URI HPI - General Chief Complaint: Upper Respiratory Infection Stated Complaint: Cough,Fever Time Seen by Provider: 01/07/21 05:46 Source: patient Mode of arrival: ambulatory Limitations: no limitations - History of Present Illness Initial Comments: 's patient is 65-year-old man who presents to be evaluated for a constellation of symptoms that included sore throat, cough, and fever. Symptoms have been going on and getting worse over about a day. Patient states that he did have the [employer] coronavirus vaccination in May. Patient denies chest pain, dyspnea, palpitations. MD Complaint: fever, cough, sore throat Onset/Timin -: days(s) Severity: moderate Consistency: constant Improves With: nothing Worsens With: nothing Context: sick contacts Associated Symptoms: fever, nasal congestion, sore throat, cough Treatments Prior to Arrival: none - Related Data Home Medications Medication Instructions Recorded Confirmed Losartan Potassium [Cozaar] 25 mg PO DAILY 02/18/20 02/22/20 Tamsulosin HCl [Flomax] 0.4 mg PO DAILY 02/18/20 02/22/20 Previous Rx's Medication Instructions Recorded Aspirin 81 mg PO DAILY chew 02/06/20 Atorvastatin [Lipitor] 80 mg PO HS #30 tab 02/06/20 Metoprolol Tartrate [Lopressor] 25 mg PO BID #60 tab 02/06/20 Nitroglycerin Sl Tabs [Nitrostat] 0.4 mg SUBLINGUAL Q5M PRN #30 tab 02/06/20 Prasugrel [Effient] 10 mg PO DAILY #30 tab 02/06/20 Meclizine [Antivert] 25 mg PO TID PRN #15 tab 02/22/20 Allergies Allergy/AdvReac Type Severity Reaction Status Date / Time Penicillins Allergy Rash/Hives Verified 02/22/20 09:23 Review of Systems ROS Statement: Those systems with pertinent positive or pertinent negative responses have been documented in the HPI. ROS Other: All systems not noted in ROS Statement are negative. Constitutional: Reports: fever. Denies: chills, weakness ENT: Reports: throat pain, congestion. Denies: ear pain Respiratory: Reports: cough. Denies: dyspnea, wheezes Cardiovascular: Denies: chest pain, palpitations, edema, syncope Gastrointestinal: Denies: abdominal pain, vomiting, diarrhea Genitourinary: Denies: dysuria, hematuria Skin: Denies: rash Neurological: Denies: headache, weakness Past Medical History Past Medical History: No Reported History, Chest Pain / Angina, Hypertension, Myocardial Infarction ([place]) Last Myocardial Infarction Date:: 02/03/20 History of Any Multi-Drug Resistant Organisms: None Reported Past Surgical History: Heart Catheterization With Stent, Orthopedic Surgery Additional Past Surgical History / Comment(s): colonoscopy, rt shoulder Past Anesthesia/Blood Transfusion Reactions: No Reported Reaction Date of Last Stent Placement:: 02/03/20 Past Psychological History: No Psychological Hx Reported Smoking Status: Never smoker Past Alcohol Use History: None Reported Past Drug Use History: None Reported - Past Family History Father History Unknown: Yes Family Medical History: Myocardial Infarction ([place]) Mother Family Medical History: Cancer General Exam Limitations: no limitations General appearance: alert, in no apparent distress Head exam: Present: atraumatic, normocephalic Eye exam: Present: normal appearance. Absent: scleral icterus, conjunctival injection Respiratory exam: Present: normal lung sounds bilaterally. Absent: respiratory distress, wheezes, rales, rhonchi, stridor Cardiovascular Exam: Present: normal rhythm, tachycardia, normal heart sounds. Absent: systolic murmur, diastolic murmur, rubs, gallop GI/Abdominal exam: Present: soft. Absent: distended, tenderness, guarding, rebound, rigid, mass Extremities exam: Present: normal inspection, normal capillary refill. Absent: pedal edema, calf tenderness Back exam: Present: normal inspection Neurological exam: Present: alert Skin exam: Present: warm, dry, intact, normal color. Absent: rash Course Vital Signs 01/07/21 01/07/21 01/07/21 02:58 03:15 08:36 Temperature 100.1 F H 99 F Pulse Rate 113 H 91 Respiratory 14 19 18 Rate Blood Pressure 127/69 130/67 O2 Sat by Pulse 94 L 94 L Oximetry Medical Decision Making - Lab Data Lab Results 01/07/21 Range/Units 03:14 Coronavirus (PCR) Detected A (Not Detectd) Disposition Clinical Impression: COVID-19 Disposition: HOME SELF-CARE Instructions (If sedation given, give patient instructions): Coronavirus Disease 2019 (COVID-19) Is patient prescribed a controlled substance at d/c from ED?: No Referrals: Daren Yanez MD [Primary Care Provider] - 1-2 days
[2021-01-07] MEDS ORDERED: CASIRIVIMAB/IMDEVIMAB (EUA) 1,200 MG in SODIUM CHLORIDE 0.9% 100 ML IVPB ONE (06:00)
[2021-01-07] MEDS ORDERED: SODIUM CHLORIDE 0.9% 50 ML IVPB ONE (06:00)
[2021-01-07 08:37] VITALS: BP 130/67; PULSE 91; RESP 18; TEMP 99
[2021-01-07] MEDS ORDERED: ACETAMINOPHEN TAB 325 MG TAB PO STA (08:37)
== END 2021-01-07 08:36 | disposition home or self-care (01) ==
LOC: EC 23:01
DX: U07.1 COVID-19 (principal); I10 Essential (primary) hypertension; I25.2 Old myocardial infarction; Z79.82 Long term (current) use of aspirin; Z88.0 Allergy status to penicillin
CPT/HCPCS: 99283; 87635; 71046; Q0243